=== PATIENT | male | born 1960 | race Hispanic/Latino ===

== ENCOUNTER 2021-09-15 11:51 | Emergency (ER) | payer OTHER, SELFPAY ==
[~2021-09-15] VITALS: Ht 170.2 cm; Wt 78.0 kg
[~2021-09-15 11:51] MED LIST: ACET1TAB12 PO; ATOR40TA69 PO; CIPR-278 PO; INSLAN SQ; LISI10TA24 PO; METF-526 PO; SITA25TA5 PO; SULF1TAB42 PO
[2021-09-15 11:52] VITALS: BP 178/85
[2021-09-15] MEDS ORDERED: LIDOCAINE HCL-MPF 1% 2ML VIAL ONE (13:21)
[2021-09-15] MEDS ORDERED: MUPIROCIN OINTMENT 22 GM TUBE TP SCH (13:30)
[2021-09-15] MEDS ORDERED: OXYCODONE/ACETAMIN 5/325MG TAB PO SCH (13:30)
[2021-09-15] MEDS ORDERED: CEFTRIAXONE 1G VIAL IM SCH (13:30)
[2021-09-15] MEDS ORDERED: IBUP-2070 PO (15:14)
[2021-09-15] MEDS ORDERED: CLIN-26 PO (15:14)
== END 2021-09-15 15:26 | disposition home or self-care (01) ==
LOC: EDH 11:51
DX: S90.811A Abrasion, right foot, initial encounter (principal); L03.115 Cellulitis of right lower limb; E11.9 Type 2 diabetes mellitus without complications; E78.00 Pure hypercholesterolemia, unspecified; I10 Essential (primary) hypertension; Z79.4 Long term (current) use of insulin; Z79.899 Other long term (current) drug therapy; W20.8XXA Other cause of strike by thrown, projected or falling object, initial encounter; Y93.89 Activity, other specified; Y92.89 Other specified places as the place of occurrence of the external cause; Y99.8 Other external cause status
CPT/HCPCS: 73630; 82948; 96372; 99283; J0696; J3490

== ENCOUNTER 2021-09-17 12:08 | Inpatient (IN) | payer OTHER ==
[~2021-09-17] VITALS: Ht 170.2 cm; Wt 81.5 kg
[~2021-09-17 12:08] MED LIST changes: +CLIN-26 PO; +IBUP-2070 PO
[2021-09-17] MEDS ORDERED: 0.9% NACL 250ML IV SCH (12:30)
[2021-09-17] MEDS ORDERED: HYDROCODONE/ACETAMINOPHEN 10/325 MG TAB PO ONE (12:30)
[2021-09-17] MEDS ORDERED: VANCOMYCIN 1G VIAL IVPB SCH (12:30)
[2021-09-17] MEDS ORDERED: ONDANSETRON 4MG INJ IVP ONE (12:30)
[2021-09-17] MEDS ORDERED: TETANUS/DIPHTHERIA TOXOID [ADULT] 0.5 ML VIAL IM ONE (12:30)
[2021-09-17 12:46] LABS: APPEARANCE,URINE Clear (CLEAR); BILIRUBIN,URINE Negative (NEGATIVE); COLOR,URINE Yellow (YELLOW); GLUCOSE, URINE (UA) >=1000 mg/dL (NEGATIVE); KETONES,URINE Trace mg/dL (NEGATIVE); LEUKOCYTE ESTERASE ,URINE Negative (NEGATIVE); NITRATE,URINE Negative (NEGATIVE); OCCULT BLOOD,URINE Negative (NEGATIVE); PH,URINE 5.5 (5.0-8.0); PROTEIN,URINE 300 mg/dL (NEGATIVE)
[2021-09-17 12:50] LABS: BACTERIA,URINE Rare /HPF (None Seen); RBC,URINE 0-1 /HPF (0-1); SQUAMOUS EPITHELIAL CELL,UR Rare /HPF (0-2); WBC,URINE 0-1 /HPF (0-1)
[2021-09-17] MEDS: INSULIN HUMULIN R 100 UNIT/ML 3ML SQ SCH ×2 (12:50→17:00)
[2021-09-17 12:55] LABS: EOSINOPHILS % (AUTO) 1.3 % (0.0-8.0); HEMATOCRIT 42.3 % (42-54); LYMPHOCYTES % (AUTO) 22.7 % (21.0-51.0); MEAN CORPUSCULAR HEMOGLOBIN 30.2 pg (27.0-33.0); MEAN CORPUSCULAR HGB CONC 33.3 g/dL (32.0-36.0); MEAN CORPUSCULAR VOLUME 90.6 fL (79-99); MONOCYTES % (AUTO) 5.5 % (3.0-13.0); NEUTROPHILS % (AUTO) 69.2 % (40.0-77.0); PLATELET COUNT (AUTO) 229 K/uL (130-400); RED BLOOD CELL COUNT(AUTO) 4.67 MIL/uL (4.50-6.20); RED CELL DISTRIBUTION WIDTH 12.6 % (11.0-15.5); WHITE BLOOD COUNT (AUTO) 13.6 K/uL (4.8-10.8)
[2021-09-17] MEDS ORDERED: 0.9%NACL 1000ML 1,000 ML IV SCH ×2 (13:00)
[2021-09-17] MEDS ORDERED: VANCOMYCIN 1G/250ML KIT 250 ML IV SCH (13:00)
[2021-09-17 13:06] LABS: CREATININE 0.7 mg/dL (0.5-1.5); POTASSIUM 3.6 mmol/L (3.5-5.1)
[2021-09-17] MEDS ORDERED: 0.9%NACL 50ML 50 ML IV ONE (13:09)
[2021-09-17 13:10] LABS: ALBUMIN 3.4 g/dL (3.5-5.0); BILIRUBIN,TOTAL 0.3 mg/dL (0.2-1.0); CRP QUANTITATIVE 67.1 mg/L (0.00-9.0); TOTAL PROTEIN, SERUM 7.6 g/dL (6.0-8.3)
[2021-09-17] MEDS: ZOSYN 3.375GM +NS 50ML IV SCH ×2 (13:23→20:41)
[2021-09-17] MEDS ORDERED: ACETAMINOPHEN 325 MG TAB PO PRN ×2 (15:00)
[2021-09-17] MEDS ORDERED: ONDANSETRON 4MG INJ IV PRN (15:00)
[2021-09-17 16:12] LABS: HEMOGLOBIN A1C 8.3 % (4.0-6.0)
[2021-09-17] MEDS: 0.9%NACL 1000ML 1,000 ML IV SCH (16:35)
[2021-09-17] MEDS: FAMOTIDINE 20MG VIAL IV SCH (20:42)
[2021-09-17] MEDS: VANCOMYCIN 1G/250ML KIT 250 ML IV SCH (20:43)
[2021-09-17] MEDS ORDERED: INSULIN GLARGINE 100 UNITS/ML 10 ML VIAL SQ SCH (21:00)
[2021-09-17 22:15] VITALS: BP 138/69
[2021-09-17 22:40] LABS: AMPHET/METH SCREEN,URINE NEGATIVE (NEGATIVE); BARBITURATE SCREEN, URINE NEGATIVE (NEGATIVE); BENZODIAZEPINES SCREEN,URINE NEGATIVE (NEGATIVE); CANNABINOID SCREEN,URINE NEGATIVE (NEGATIVE); COCAINE SCREEN,URINE NEGATIVE (NEGATIVE); OPIATE SCREEN,URINE NEGATIVE (NEGATIVE); PHENCYCLIDINE SCREEN,URINE NEGATIVE (NEGATIVE)
[2021-09-17] MEDS ORDERED: LISI30TA4 PO (23:22)
[2021-09-17] MEDS ORDERED: DAPA10TA PO (23:22)
[2021-09-17] MEDS ORDERED: AEC81 PO (23:22)
[2021-09-17] MEDS ORDERED: CLIN-116 PO (23:22)
[2021-09-17] MEDS ORDERED: METF-910 PO (23:22)
[2021-09-17] MEDS ORDERED: ROSU40TA21 PO (23:22)
[2021-09-17] MEDS ORDERED: INSU100I24 SQ (23:27)
[2021-09-17] MEDS ORDERED: LIRA0.6P SQ (23:27)
[2021-09-17] MEDS ORDERED: MORPHINE 2 MG SYG ONE (23:49)
[2021-09-18] MEDS ORDERED: MORPHINE 2 MG SYG IVP ONE
[2021-09-18 03:36] VITALS: BP 155/70
[2021-09-18 03:56] LABS: HEMATOCRIT 37.8 % (42-54); MEAN CORPUSCULAR HGB CONC 33.1 g/dL (32.0-36.0); MEAN CORPUSCULAR VOLUME 90.6 fL (79-99); RED BLOOD CELL COUNT(AUTO) 4.17 MIL/uL (4.50-6.20); RED CELL DISTRIBUTION WIDTH 12.7 % (11.0-15.5)
[2021-09-18 04:08] LABS: CREATININE 0.9 mg/dL (0.5-1.5); POTASSIUM 3.5 mmol/L (3.5-5.1)
[2021-09-18] MEDS: ZOSYN 3.375GM +NS 50ML IV SCH ×3 (04:18→20:09)
[2021-09-18] MEDS: 0.9%NACL 1000ML 1,000 ML IV SCH ×2 (04:42→18:22)
[2021-09-18 08:00] VITALS: BP 151/65
[2021-09-18] MEDS: INSULIN HUMULIN R 100 UNIT/ML 3ML SQ SCH ×4 (08:23→17:00)
[2021-09-18] MEDS: FAMOTIDINE 20MG VIAL IV SCH ×2 (08:27→20:09)
[2021-09-18] MEDS: VANCOMYCIN 1G/250ML KIT 250 ML IV SCH ×2 (08:28→20:10)
[2021-09-18] MEDS: ENOXAPARIN SODIUM 40 MG/0.4 ML SYRINGE SQ SCH (08:29)
[2021-09-18] MEDS ORDERED: PNEUMOCOCCAL VACCINE POLYVALENT 0.5 ML/VIAL [PPV] SQ ONE (09:00)
[2021-09-18] MEDS ORDERED: ASPIRIN 81 MG EC TAB PO SCH (09:00)
[2021-09-18] MEDS ORDERED: IOHEXOL 350 MG/ML 100ML INFUS..BTL IV ONE (11:32)
[2021-09-18] MEDS ORDERED: IOHEXOL-350 50ML VIAL IV ONE (11:32)
[2021-09-18 11:57] VITALS: BP 144/73
[2021-09-18] MEDS: ASPIRIN 81 MG EC TAB PO SCH (12:19)
[2021-09-18] MEDS: LISINOPRIL 20 MG TABLET PO SCH ×2 (12:19→20:09)
[2021-09-18 16:00] VITALS: BP 146/61
[2021-09-18] MEDS: TRAMADOL HCL 50 MG TABLET PO PRN (18:23)
[2021-09-18] MEDS ORDERED: DEXTROSE 50%-WATER 50 ML DISP.SYRIN IV PRN (19:00)
[2021-09-18] MEDS ORDERED: GLUCAGON 1MG KIT 1 MG ML IM PRN (19:00)
[2021-09-18 19:29] VITALS: BP 174/79
[2021-09-18] MEDS ORDERED: 0.9% NACL 250ML 250 ML ONE (19:51)
[2021-09-18] MEDS: ATORVASTATIN 40 MG TABLET PO SCH (20:10)
[2021-09-18] MEDS ORDERED: PNEUMOCOCCAL VACCINE POLYVALENT 0.5 ML/VIAL [PPV] ONE (20:15)
[2021-09-18] MEDS ORDERED: COMPOUND IV REFRIGERATED 1 EACH IVSOLN MISC PRN (20:30)
[2021-09-18] MEDS: VANCOMYCIN 1G 1.25 GM in 0.9% NACL 250ML 250 ML IV SCH (20:30)
[2021-09-18 23:25] VITALS: BP 166/68
[2021-09-19 03:47] VITALS: BP 163/77
[2021-09-19 03:49] LABS: HEMATOCRIT 38.1 % (42-54); MEAN CORPUSCULAR HEMOGLOBIN 29.7 pg (27.0-33.0); MEAN CORPUSCULAR HGB CONC 32.3 g/dL (32.0-36.0); RED BLOOD CELL COUNT(AUTO) 4.14 MIL/uL (4.50-6.20); WHITE BLOOD COUNT (AUTO) 11.2 K/uL (4.8-10.8)
[2021-09-19 04:08] LABS: CREATININE 0.9 mg/dL (0.5-1.5); POTASSIUM 3.2 mmol/L (3.5-5.1)
[2021-09-19] MEDS: ZOSYN 3.375GM +NS 50ML IV SCH (04:26)
[2021-09-19] MEDS ORDERED: KCL 20 MEQ ERTAB PO ONE (06:00)
[2021-09-19] MEDS: 0.9%NACL 1000ML 1,000 ML IV SCH ×2 (07:00→19:57)
[2021-09-19] MEDS: INSULIN HUMULIN R 100 UNIT/ML 3ML SQ SCH ×4 (07:17→20:26)
[2021-09-19] MEDS ORDERED: KCL 20 MEQ ERTAB PO SCH (08:00)
[2021-09-19] MEDS: ENOXAPARIN SODIUM 40 MG/0.4 ML SYRINGE SQ SCH (08:28)
[2021-09-19] MEDS: LISINOPRIL 20 MG TABLET PO SCH ×2 (08:29→20:21)
[2021-09-19] MEDS: ASPIRIN 81 MG EC TAB PO SCH (08:29)
[2021-09-19] MEDS: VANCOMYCIN 1G 1.25 GM in 0.9% NACL 250ML 250 ML IV SCH ×2 (08:30→20:20)
[2021-09-19] MEDS: FAMOTIDINE 20MG VIAL IV SCH ×2 (08:31→20:20)
[2021-09-19] MEDS: TRAMADOL HCL 50 MG TABLET PO PRN ×2 (08:33→20:29)
[2021-09-19 08:34] VITALS: BP 151/69
[2021-09-19 12:08] VITALS: BP 136/60
[2021-09-19] MEDS: AMLODIPINE 5 MG TAB PO SCH (12:57)
[2021-09-19] MEDS: CEFEPIME HCL 2 GM VIAL IVP SCH ×2 (12:57→23:00)
[2021-09-19 17:09] VITALS: BP 170/81
[2021-09-19] MEDS: HYDRALAZINE 20MG/ML VIAL IV PRN (18:18)
[2021-09-19] MEDS: ATORVASTATIN 40 MG TABLET PO SCH (20:21)
[2021-09-19 20:28] VITALS: BP 175/82
[2021-09-19 21:39] VITALS: BP 159/77
[2021-09-20] VITALS (16 sets, daily range): BP systolic 115–168; BP diastolic 58–77
[2021-09-20] MEDS ORDERED: KCL 20 MEQ ERTAB PO ONE (00:30)
[2021-09-20] MEDS: HYDRALAZINE 20MG/ML VIAL IV PRN ×2 (00:45→22:21)
[2021-09-20 04:01] LABS: MEAN CORPUSCULAR HGB CONC 34.4 g/dL (32.0-36.0); MEAN CORPUSCULAR VOLUME 87.2 fL (79-99); RED BLOOD CELL COUNT(AUTO) 4.47 MIL/uL (4.50-6.20); RED CELL DISTRIBUTION WIDTH 12.1 % (11.0-15.5); WHITE BLOOD COUNT (AUTO) 10.5 K/uL (4.8-10.8)
[2021-09-20 04:12] LABS: INR 0.98 (0.85-1.15); PROTHROMBIN TIME 10.7 SEC (9.6-11.6)
[2021-09-20 04:15] LABS: ALBUMIN 2.9 g/dL (3.5-5.0); BILIRUBIN,TOTAL 0.3 mg/dL (0.2-1.0); CREATININE 0.6 mg/dL (0.5-1.5); POTASSIUM 3.5 mmol/L (3.5-5.1); TOTAL PROTEIN, SERUM 7.1 g/dL (6.0-8.3)
[2021-09-20] MEDS: 0.9%NACL 1000ML 1,000 ML IV SCH ×3 (05:43→22:21)
[2021-09-20] MEDS: INSULIN HUMULIN R 100 UNIT/ML 3ML SQ SCH ×4 (05:51→20:34)
[2021-09-20] MEDS ORDERED: HEPARIN 10,000 UNIT/10ML (1,000 UNIT/ML) VIAL ONE (07:20)
[2021-09-20] MEDS ORDERED: NITROGLYCERIN 2 MG VIAL IV ONE (07:21)
[2021-09-20] MEDS ORDERED: IODIXANOL 320 MG/ML 100 ML VIAL ONE (07:21)
[2021-09-20] MEDS ORDERED: LIDOCAINE HCL 400MG/20ML VIAL ONE (07:21)
[2021-09-20] MEDS ORDERED: MIDAZOLAM HCL 1 MG/ML 2ML VIAL ONE (07:21)
[2021-09-20] MEDS ORDERED: FENTANYL CITRATE PF 50 MCG/1 ML 2ML VIAL ONE (07:21)
[2021-09-20 07:49] LABS: INR 1.01 (0.85-1.15)
[2021-09-20 07:50] LABS: PARTIAL THROMBOPLASTIN TIME 30.2 SEC (26.3-35.5)
[2021-09-20] MEDS ORDERED: 0.9%NACL 1000ML 1,000 ML IV SCH (09:00)
[2021-09-20] MEDS: LISINOPRIL 20 MG TABLET PO SCH ×2 (11:08→20:24)
[2021-09-20] MEDS: FAMOTIDINE 20MG VIAL IV SCH ×2 (11:09→20:23)
[2021-09-20] MEDS: ENOXAPARIN SODIUM 40 MG/0.4 ML SYRINGE SQ SCH (11:09)
[2021-09-20] MEDS: AMLODIPINE 5 MG TAB PO SCH (11:09)
[2021-09-20] MEDS: ASPIRIN 81 MG EC TAB PO SCH (11:09)
[2021-09-20] MEDS: VANCOMYCIN 1G 1.25 GM in 0.9% NACL 250ML 250 ML IV SCH ×2 (11:14→20:25)
[2021-09-20] MEDS: CEFEPIME HCL 2 GM VIAL IVP SCH ×2 (11:14→22:45)
[2021-09-20] MEDS: BUPROPION HCL 150 MG TABLET.SA PO SCH (20:23)
[2021-09-20] MEDS: ATORVASTATIN 40 MG TABLET PO SCH (20:24)
[2021-09-20] MEDS: TRAMADOL HCL 50 MG TABLET PO PRN (20:24)
[2021-09-21] VITALS (20 sets, daily range): BP systolic 104–177; BP diastolic 45–77
[2021-09-21 05:05] LABS: HEMATOCRIT 44.7 % (42-54); MEAN CORPUSCULAR HEMOGLOBIN 29.4 pg (27.0-33.0); MEAN CORPUSCULAR HGB CONC 32.2 g/dL (32.0-36.0); MEAN CORPUSCULAR VOLUME 91.4 fL (79-99); RED BLOOD CELL COUNT(AUTO) 4.89 MIL/uL (4.50-6.20); RED CELL DISTRIBUTION WIDTH 12.4 % (11.0-15.5); WHITE BLOOD COUNT (AUTO) 12.4 K/uL (4.8-10.8)
[2021-09-21 05:07] LABS: PROTHROMBIN TIME 10.9 SEC (9.6-11.6)
[2021-09-21 05:08] LABS: PARTIAL THROMBOPLASTIN TIME 32.5 SEC (26.3-35.5)
[2021-09-21 05:16] LABS: CREATININE 0.8 mg/dL (0.5-1.5); POTASSIUM 3.6 mmol/L (3.5-5.1)
[2021-09-21] MEDS: INSULIN HUMULIN R 100 UNIT/ML 3ML SQ SCH ×4 (06:06→20:51)
[2021-09-21] MEDS: ENOXAPARIN SODIUM 40 MG/0.4 ML SYRINGE SQ SCH ×2 (09:00→09:47)
[2021-09-21] MEDS: BUPROPION HCL 150 MG TABLET.SA PO SCH ×3 (09:00→20:49)
[2021-09-21] MEDS: ASPIRIN 81 MG EC TAB PO SCH ×2 (09:00→09:47)
[2021-09-21] MEDS: AMLODIPINE 5 MG TAB PO SCH ×2 (09:00→09:47)
[2021-09-21] MEDS: LISINOPRIL 20 MG TABLET PO SCH ×3 (09:00→20:49)
[2021-09-21] MEDS: CEFEPIME HCL 2 GM VIAL IVP SCH (09:46)
[2021-09-21] MEDS: FAMOTIDINE 20MG VIAL IV SCH ×2 (09:47→20:48)
[2021-09-21] MEDS: NICOTINE 21 MG/ 24 HR PATCH TD SCH (09:48)
[2021-09-21] MEDS: VANCOMYCIN 1G 1.25 GM in 0.9% NACL 250ML 250 ML IV SCH ×2 (09:50→20:49)
[2021-09-21] MEDS: 0.9%NACL 1000ML 1,000 ML IV SCH ×2 (12:20→18:21)
[2021-09-21] MEDS ORDERED: CEFAZOLIN SODIUM 1 GM VIAL IVP PRN ×2 (13:00→15:30)
[2021-09-21] MEDS ORDERED: CEFAZOLIN SODIUM 1 GM VIAL ONE ×3 (15:13→17:52)
[2021-09-21] MEDS ORDERED: PROPOFOL 10 MG/ML 20ML VIAL IV ONE (15:27)
[2021-09-21] MEDS ORDERED: LIDOCAINE PF 100MG/5ML (2%) SYRINGE 5ML ONE ×3 (15:27→15:43)
[2021-09-21] MEDS ORDERED: ROCURONIUM 10MG/1ML SYR 10 MG/ML ML ONE (15:34)
[2021-09-21] MEDS ORDERED: FENTANYL CITRATE PF 50 MCG/1 ML 2ML VIAL ONE ×2 (16:41→17:53)
[2021-09-21] MEDS ORDERED: HEPARIN 10,000 UNIT/10ML (1,000 UNIT/ML) VIAL ONE (16:57)
[2021-09-21] MEDS ORDERED: PHENYLEPHRINE HCL 10 MG/ML 1ML VIAL IV ONE (17:16)
[2021-09-21] MEDS ORDERED: PROTAMINE SULFATE 10 MG/ML 5 ML VIAL ONE (17:49)
[2021-09-21] MEDS ORDERED: NEOSTIGMINE 5MG/5ML SYR IV ONE (18:04)
[2021-09-21] MEDS ORDERED: ONDANSETRON 4MG INJ ONE (18:04)
[2021-09-21] MEDS ORDERED: GLYCOPYRROLATE 1 MG/5 ML SYRINGE ONE (18:04)
[2021-09-21] MEDS ORDERED: ACETAMINOPHEN 325 MG TAB PO PRN (18:30)
[2021-09-21] MEDS ORDERED: TRAMADOL HCL 50 MG TABLET PO PRN (18:30)
[2021-09-21] MEDS ORDERED: MEPERIDINE-PF 25 MG/ML SYG ONE (19:00)
[2021-09-21] MEDS: ATORVASTATIN 40 MG TABLET PO SCH (20:49)
[2021-09-21] MEDS: TRAMADOL HCL 50 MG TABLET PO PRN (20:50)
[2021-09-22] VITALS (21 sets, daily range): BP systolic 121–169; BP diastolic 46–73
[2021-09-22] MEDS: CEFAZOLIN SODIUM 1 GM VIAL IVP SCH ×3 (01:37→18:17)
[2021-09-22] MEDS: TRAMADOL HCL 50 MG TABLET PO PRN ×3 (02:32→19:47)
[2021-09-22] MEDS: INSULIN HUMULIN R 100 UNIT/ML 3ML SQ SCH ×4 (06:36→20:05)
[2021-09-22 07:17] LABS: HEMATOCRIT 38.8 % (42-54); MEAN CORPUSCULAR HEMOGLOBIN 29.6 pg (27.0-33.0); MEAN CORPUSCULAR HGB CONC 32.2 g/dL (32.0-36.0); MEAN CORPUSCULAR VOLUME 91.7 fL (79-99); PLATELET COUNT (AUTO) 249 K/uL (130-400); RED BLOOD CELL COUNT(AUTO) 4.23 MIL/uL (4.50-6.20); RED CELL DISTRIBUTION WIDTH 12.5 % (11.0-15.5); WHITE BLOOD COUNT (AUTO) 17.6 K/uL (4.8-10.8)
[2021-09-22 07:29] LABS: ALBUMIN 2.7 g/dL (3.5-5.0); BILIRUBIN,TOTAL 0.4 mg/dL (0.2-1.0); CREATININE 0.8 mg/dL (0.5-1.5); POTASSIUM 4.2 mmol/L (3.5-5.1); TOTAL PROTEIN, SERUM 6.8 g/dL (6.0-8.3)
[2021-09-22 08:46] LABS: BAND NEUTROPHILS % (MANUAL) 1 % (0-2); LYMPHOCYTES % (MANUAL) 6 % (22-44); MAN.DIFF COMMENT-IMPRESSION MANUAL DIFFERENTIAL; MONOCYTES % (MANUAL) 2 % (2-9); PLATELET MORPHOLOGY COMMENT ADEQUATE; SEGMENTED NEUTROPHILS % 91 % (40-70)
[2021-09-22] MEDS: LISINOPRIL 20 MG TABLET PO SCH (08:53)
[2021-09-22] MEDS: BUPROPION HCL 150 MG TABLET.SA PO SCH ×2 (08:53→19:58)
[2021-09-22] MEDS: AMLODIPINE 5 MG TAB PO SCH (08:53)
[2021-09-22] MEDS: ASPIRIN 81 MG EC TAB PO SCH (08:53)
[2021-09-22] MEDS: FAMOTIDINE 20MG VIAL IV SCH ×2 (08:53→19:46)
[2021-09-22] MEDS: NICOTINE 21 MG/ 24 HR PATCH TD SCH (08:54)
[2021-09-22] MEDS: RIVAROXABAN 2.5 MG TABLET PO SCH ×2 (09:00→19:47)
[2021-09-22] MEDS ORDERED: INSULIN GLARGINE 100 UNITS/ML 10 ML VIAL SQ SCH (09:00)
[2021-09-22] MEDS ORDERED: PHARMACY COMMUNICATION MISC SCH (09:30)
[2021-09-22] MEDS: VANCOMYCIN 1G 1.25 GM in 0.9% NACL 250ML 250 ML IV SCH ×2 (10:12→19:58)
[2021-09-22] MEDS ORDERED: INSULIN HUMULIN R 100 UNIT/ML 3ML SQ SCH ×2 (11:30→17:00)
[2021-09-22] MEDS: HYDROCHLOROTHIAZIDE 25 MG TABLET PO SCH (19:46)
[2021-09-22] MEDS: ATORVASTATIN 40 MG TABLET PO SCH (19:47)
[2021-09-22] MEDS ORDERED: LOSARTAN 50 MG TABLET PO SCH (20:00)
[2021-09-23] VITALS (9 sets, daily range): BP systolic 144–183; BP diastolic 64–92
[2021-09-23] MEDS: TRAMADOL HCL 50 MG TABLET PO PRN ×2 (02:01→23:51)
[2021-09-23] MEDS: INSULIN HUMULIN R 100 UNIT/ML 3ML SQ SCH ×7 (05:24→20:14)
[2021-09-23 06:54] LABS: ALBUMIN 2.8 g/dL (3.5-5.0); BILIRUBIN,TOTAL 0.4 mg/dL (0.2-1.0); CREATININE 0.7 mg/dL (0.5-1.5); POTASSIUM 3.4 mmol/L (3.5-5.1)
[2021-09-23] MEDS: PANTOPRAZOLE 40 MG TAB DR PO SCH (08:37)
[2021-09-23] MEDS: BUPROPION HCL 150 MG TABLET.SA PO SCH ×2 (08:37→20:01)
[2021-09-23] MEDS: RIVAROXABAN 2.5 MG TABLET PO SCH ×2 (08:37→20:01)
[2021-09-23] MEDS: HYDROCHLOROTHIAZIDE 25 MG TABLET PO SCH (08:38)
[2021-09-23] MEDS: ASPIRIN 81 MG EC TAB PO SCH (08:38)
[2021-09-23] MEDS: LOSARTAN 50 MG TABLET PO SCH (08:39)
[2021-09-23] MEDS: NICOTINE 21 MG/ 24 HR PATCH TD SCH (08:43)
[2021-09-23] MEDS: VANCOMYCIN 1G 1.25 GM in 0.9% NACL 250ML 250 ML IV SCH ×2 (08:45→20:15)
[2021-09-23] MEDS: AMLODIPINE 5 MG TAB PO SCH (08:46)
[2021-09-23] MEDS ORDERED: INSULIN GLARGINE 100 UNITS/ML 10 ML VIAL SQ SCH (09:00)
[2021-09-23 12:03] LABS: HEMATOCRIT 40.7 % (42-54); MEAN CORPUSCULAR HEMOGLOBIN 29.9 pg (27.0-33.0); MEAN CORPUSCULAR HGB CONC 32.4 g/dL (32.0-36.0); MEAN CORPUSCULAR VOLUME 92.1 fL (79-99); RED BLOOD CELL COUNT(AUTO) 4.42 MIL/uL (4.50-6.20); RED CELL DISTRIBUTION WIDTH 12.6 % (11.0-15.5); WHITE BLOOD COUNT (AUTO) 15.6 K/uL (4.8-10.8)
[2021-09-23] MEDS ORDERED: POTASSIUM CHLORIDE 20MEQ/100ML 100 ML IV PRN (16:00)
[2021-09-23] MEDS: KCL 20 MEQ ERTAB PO PRN ×2 (16:38→18:36)
[2021-09-23] MEDS: ATORVASTATIN 40 MG TABLET PO SCH (20:06)
[2021-09-24] VITALS (10 sets, daily range): BP systolic 136–177; BP diastolic 63–82
[2021-09-24 04:18] LABS: BASOPHILS % (AUTO) 0.8 % (0.0-5.0); EOSINOPHILS % (AUTO) 1.8 % (0.0-8.0); HEMATOCRIT 37.6 % (42-54); LYMPHOCYTES % (AUTO) 15.5 % (21.0-51.0); MEAN CORPUSCULAR HEMOGLOBIN 29.2 pg (27.0-33.0); MEAN CORPUSCULAR VOLUME 88.5 fL (79-99); MONOCYTES % (AUTO) 10.2 % (3.0-13.0); PLATELET COUNT (AUTO) 249 K/uL (130-400); RED BLOOD CELL COUNT(AUTO) 4.25 MIL/uL (4.50-6.20); RED CELL DISTRIBUTION WIDTH 12.4 % (11.0-15.5); WHITE BLOOD COUNT (AUTO) 13.7 K/uL (4.8-10.8)
[2021-09-24 04:52] LABS: ALBUMIN 2.6 g/dL (3.5-5.0); BILIRUBIN,TOTAL 0.3 mg/dL (0.2-1.0); CREATININE 0.8 mg/dL (0.5-1.5); POTASSIUM 3.1 mmol/L (3.5-5.1)
[2021-09-24] MEDS: INSULIN HUMULIN R 100 UNIT/ML 3ML SQ SCH ×6 (06:39→16:23)
[2021-09-24] MEDS: KCL 20 MEQ ERTAB PO PRN (07:03)
[2021-09-24] MEDS ORDERED: INSULIN GLARGINE 100 UNITS/ML 10 ML VIAL SQ SCH (08:00)
[2021-09-24] MEDS: RIVAROXABAN 2.5 MG TABLET PO SCH (08:23)
[2021-09-24] MEDS: LOSARTAN 50 MG TABLET PO SCH (08:23)
[2021-09-24] MEDS: AMLODIPINE 5 MG TAB PO SCH (08:23)
[2021-09-24] MEDS: BUPROPION HCL 150 MG TABLET.SA PO SCH (08:24)
[2021-09-24] MEDS: PANTOPRAZOLE 40 MG TAB DR PO SCH (08:24)
[2021-09-24] MEDS: ASPIRIN 81 MG EC TAB PO SCH (08:24)
[2021-09-24] MEDS: HYDROCHLOROTHIAZIDE 25 MG TABLET PO SCH (08:24)
[2021-09-24] MEDS: NICOTINE 21 MG/ 24 HR PATCH TD SCH (08:25)
[2021-09-24] MEDS: VANCOMYCIN 1G 1.25 GM in 0.9% NACL 250ML 250 ML IV SCH (08:35)
[2021-09-24] MEDS ORDERED: NICOTINE 21 MG/ 24 HR PATCH TD SCH (09:00)
[2021-09-24] MEDS ORDERED: PANT40TA PO (12:51)
[2021-09-24] MEDS ORDERED: LOSA50TA2 PO (12:51)
[2021-09-24] MEDS ORDERED: BUPR150T3 PO (12:51)
[2021-09-24] MEDS ORDERED: HYDR25TA PO (12:51)
[2021-09-24] MEDS ORDERED: AMLO5TAB4 PO (12:51)
[2021-09-24] MEDS ORDERED: ATOR40TA69 PO (12:51)
== END 2021-09-24 19:53 | disposition home or self-care (01) | DRG 253 ==
LOC: EDH 12:08 → EDHIP 12:09 → 4BH 20:46 → 2BH 09-21 19:41 → 4CH 09-24 14:25
PROVIDERS: ADMIT Internal Medicine; ATTEND Internal Medicine
PROC: 3E0234Z Introduction of Serum, Toxoid and Vaccine into Muscle, Percutaneous Approach (ICD-10-PCS; 2021-09-17)
PROC: 3E0134Z Introduction of Serum, Toxoid and Vaccine into Subcutaneous Tissue, Percutaneous Approach (ICD-10-PCS; 2021-09-18)
PROC: B41G1ZZ Fluoroscopy of Left Lower Extremity Arteries using Low Osmolar Contrast (ICD-10-PCS; 2021-09-20)
PROC: 04CK0ZZ Extirpation of Matter from Right Femoral Artery, Open Approach (ICD-10-PCS; principal; 2021-09-21 15:25)
PROC: 041 Lower Arteries, Bypass (ICD-10-PCS; 2021-09-21 15:25)
DX: I77.1 Stricture of artery (principal); L03.115 Cellulitis of right lower limb; E11.51 Type 2 diabetes mellitus with diabetic peripheral angiopathy without gangrene; I10 Essential (primary) hypertension; E11.65 Type 2 diabetes mellitus with hyperglycemia; B35.1 Tinea unguium; E11.621 Type 2 diabetes mellitus with foot ulcer; E78.00 Pure hypercholesterolemia, unspecified; Z20.822 Contact with and (suspected) exposure to COVID-19; E78.5 Hyperlipidemia, unspecified; F17.210 Nicotine dependence, cigarettes, uncomplicated; I25.10 Atherosclerotic heart disease of native coronary artery without angina pectoris; F32.A Depression, unspecified; L97.509 Non-pressure chronic ulcer of other part of unspecified foot with unspecified severity; E66.9 Obesity, unspecified; Z68.28 Body mass index [BMI] 28.0-28.9, adult; Z79.01 Long term (current) use of anticoagulants; Z79.4 Long term (current) use of insulin; Z79.84 Long term (current) use of oral hypoglycemic drugs; Z79.899 Other long term (current) drug therapy; Z83.3 Family history of diabetes mellitus; Z82.5 Family history of asthma and other chronic lower respiratory diseases; Z82.3 Family history of stroke; Z82.0 Family history of epilepsy and other diseases of the nervous system; Z82.49 Family history of ischemic heart disease and other diseases of the circulatory system
CPT/HCPCS: 36246; 36415; 71045; 73630; 73700; 75635; 75716; 80048; 80053; 80202; 80305; 81001; 82948; 83036; 83605; 83735; 84132; 84484; 85025; 85027; 85610; 85730; 86140; 86850; 86900; 86901; 86923; 87040; 87635; 90714; 90732; 93005; 93306; 93356; 93926; 96372; 97039; 99156; 99157; A4344; C1894; G0378; J0360; J0690; J0692; J0696; J1644; J1650; J1815; J2001; J2175; J2250; J2370; J2405; J2543; J2704; J2710; J2720; J3010; J3370; J3490; J7030; J7040; J7050; Q9967

== ENCOUNTER 2021-10-16 08:56 | Emergency (ER) | payer OTHER ==
[~2021-10-16] VITALS: Ht 170.2 cm; Wt 81.6 kg
[~2021-10-16 08:56] MED LIST changes: -ACET1TAB12 PO; +AEC81 PO; +AMLO5TAB4 PO; +BUPR150T3 PO; -CIPR-278 PO; -CLIN-26 PO; +DAPA10TA PO; +HYDR25TA PO; -IBUP-2070 PO; -INSLAN SQ; +INSU100I24 SQ; +LIRA0.6P SQ; -LISI10TA24 PO; +LISI30TA4 PO; +LOSA50TA2 PO; -METF-526 PO; +METF-910 PO; +PANT40TA PO; -SULF1TAB42 PO
[2021-10-16 09:04] VITALS: BP 201/87
[2021-10-16] MEDS ORDERED: LIDOCAINE HCL-MPF 1% 2ML VIAL ONE (09:29)
[2021-10-16] MEDS ORDERED: CEFTRIAXONE 1G VIAL IM ONE (09:30)
[2021-10-16] MEDS ORDERED: BACITRACIN 28.4 GM OINT TP SCH (09:30)
[2021-10-16] MEDS ORDERED: CEPH500B PO (09:39)
[2021-10-16] MEDS ORDERED: BACI1POW3 MC (09:39)
== END 2021-10-16 10:21 | disposition home or self-care (01) ==
LOC: EDH 08:56
DX: T81.49XA Infection following a procedure, other surgical site, initial encounter (principal); L03.115 Cellulitis of right lower limb; I10 Essential (primary) hypertension; E11.9 Type 2 diabetes mellitus without complications; E78.00 Pure hypercholesterolemia, unspecified; Z98.890 Other specified postprocedural states; Z79.82 Long term (current) use of aspirin; Z79.899 Other long term (current) drug therapy; Z79.4 Long term (current) use of insulin; Y92.89 Other specified places as the place of occurrence of the external cause
CPT/HCPCS: 96372; 99283; J0696; J3490

== ENCOUNTER 2021-11-29 09:14 | Inpatient (IN) | payer OTHER ==
[~2021-11-29] VITALS: Ht 167.6 cm; Wt 84.5 kg
[~2021-11-29 09:14] MED LIST changes: +BACI1POW3 MC; +CEPH500B PO
[2021-11-29 10:03] LABS: BASOPHILS % (AUTO) 1.2 % (0.0-5.0); EOSINOPHILS % (AUTO) 4.2 % (0.0-8.0); HEMATOCRIT 45.3 % (42-54); LYMPHOCYTES % (AUTO) 25.6 % (21.0-51.0); MEAN CORPUSCULAR HGB CONC 33.1 g/dL (32.0-36.0); MEAN CORPUSCULAR VOLUME 87.5 fL (79-99); MONOCYTES % (AUTO) 5.8 % (3.0-13.0); NEUTROPHILS % (AUTO) 62.9 % (40.0-77.0); PLATELET COUNT (AUTO) 268 K/uL (130-400); RED BLOOD CELL COUNT(AUTO) 5.18 MIL/uL (4.50-6.20); RED CELL DISTRIBUTION WIDTH 13.4 % (11.0-15.5); WHITE BLOOD COUNT (AUTO) 10.7 K/uL (4.8-10.8)
[2021-11-29 10:19] LABS: ALBUMIN 3.5 g/dL (3.5-5.0); BILIRUBIN,TOTAL 0.2 mg/dL (0.2-1.0); CREATININE 0.9 mg/dL (0.5-1.5); POTASSIUM 4.1 mmol/L (3.5-5.1)
[2021-11-29 10:25] LABS: PROTHROMBIN TIME 10.9 SEC (9.6-11.6)
[2021-11-29 10:27] LABS: PARTIAL THROMBOPLASTIN TIME 31.3 SEC (26.3-35.5)
[2021-11-29] MEDS ORDERED: ATORVASTATIN 40 MG TABLET PO ONE (11:30)
[2021-11-29] MEDS ORDERED: PANTOPRAZOLE 40 MG/VIAL IVP ONE (12:00)
[2021-11-29] MEDS ORDERED: HEPARIN 5,000 UNIT VIAL IV PRN (12:00)
[2021-11-29] MEDS ORDERED: ASPIRIN 81 MG EC TAB PO ONE (12:00)
[2021-11-29] MEDS ORDERED: LABETALOL 20MG SYG IV PRN (12:00)
[2021-11-29] MEDS ORDERED: HYDROMORPHONE 0.5 MG SYG (0.5MG/0.5ML) IVP PRN (12:00)
[2021-11-29] MEDS ORDERED: HEPARIN 25,000 UNITS/250ML D5W 250 ML IV ONE (12:05)
[2021-11-29] MEDS ORDERED: AMLODIPINE 5 MG TAB PO SCH ×2 (12:30→21:00)
[2021-11-29 12:31] LABS: HEMOGLOBIN A1C 8.6 % (4.0-6.0)
[2021-11-29] MEDS: HEPARIN 25,000 UNITS/250ML D5W 250 ML IV SCH (12:42)
[2021-11-29 13:05] VITALS: BP 130/73
[2021-11-29 16:11] VITALS: BP 138/69
[2021-11-29] MEDS: INSULIN HUMULIN R 100 UNIT/ML 3ML SQ SCH ×2 (16:20→20:53)
[2021-11-29 19:08] LABS: INR 1.03 (0.85-1.15); PROTHROMBIN TIME 11.2 SEC (9.6-11.6)
[2021-11-29 19:10] LABS: PARTIAL THROMBOPLASTIN TIME 37.4 SEC (26.3-35.5)
[2021-11-29 19:32] VITALS: BP 127/69
[2021-11-29] MEDS: LISINOPRIL 10 MG TABLET PO SCH (20:53)
[2021-11-29] MEDS: BUPROPION HCL 150 MG TABLET.SA PO SCH (20:53)
[2021-11-29] MEDS: ATORVASTATIN 40 MG TABLET PO SCH (20:53)
[2021-11-29 23:13] VITALS: BP 134/77
[2021-11-30] VITALS (13 sets, daily range): BP systolic 117–180; BP diastolic 62–83
[2021-11-30] MEDS: HEPARIN 25,000 UNITS/250ML D5W 250 ML IV SCH (05:13)
[2021-11-30] MEDS: INSULIN HUMULIN R 100 UNIT/ML 3ML SQ SCH ×4 (06:36→20:58)
[2021-11-30 08:06] LABS: BASOPHILS % (AUTO) 1.5 % (0.0-5.0); EOSINOPHILS % (AUTO) 5.1 % (0.0-8.0); HEMATOCRIT 44.7 % (42-54); LYMPHOCYTES % (AUTO) 24.5 % (21.0-51.0); MEAN CORPUSCULAR HEMOGLOBIN 29.1 pg (27.0-33.0); MEAN CORPUSCULAR HGB CONC 32.7 g/dL (32.0-36.0); MEAN CORPUSCULAR VOLUME 89.2 fL (79-99); MONOCYTES % (AUTO) 5.5 % (3.0-13.0); NEUTROPHILS % (AUTO) 63.1 % (40.0-77.0); PLATELET COUNT (AUTO) 236 K/uL (130-400); RED BLOOD CELL COUNT(AUTO) 5.01 MIL/uL (4.50-6.20); RED CELL DISTRIBUTION WIDTH 13.5 % (11.0-15.5); WHITE BLOOD COUNT (AUTO) 10.6 K/uL (4.8-10.8)
[2021-11-30 08:17] LABS: CREATININE 0.7 mg/dL (0.5-1.5)
[2021-11-30] MEDS: BUPROPION HCL 150 MG TABLET.SA PO SCH ×2 (08:21→20:44)
[2021-11-30] MEDS: ASPIRIN 81 MG EC TAB PO SCH (08:21)
[2021-11-30] MEDS: PANTOPRAZOLE 40 MG/VIAL IVP SCH (08:21)
[2021-11-30] MEDS: LISINOPRIL 10 MG TABLET PO SCH ×2 (08:22→20:44)
[2021-11-30] MEDS ORDERED: LOSARTAN 50 MG TABLET PO SCH (09:00)
[2021-11-30] MEDS ORDERED: NITROGLYCERIN 50MG VIAL ONE (12:42)
[2021-11-30] MEDS ORDERED: HEPARIN 10,000 UNIT/10ML (1,000 UNIT/ML) VIAL ONE (12:42)
[2021-11-30] MEDS ORDERED: MIDAZOLAM HCL 1 MG/ML 2ML VIAL ONE (12:43)
[2021-11-30] MEDS ORDERED: IODIXANOL 320 MG/ML 100 ML VIAL ONE (12:43)
[2021-11-30] MEDS ORDERED: FENTANYL CITRATE PF 50 MCG/1 ML 2ML VIAL ONE (12:43)
[2021-11-30] MEDS ORDERED: LIDOCAINE HCL 1% MDV 50ML VIAL ONE (12:44)
[2021-11-30] MEDS ORDERED: 0.9%NACL 1000ML 1,000 ML IV SCH (15:00)
[2021-11-30] MEDS: ATORVASTATIN 40 MG TABLET PO SCH (20:45)
[2021-11-30] MEDS: ACETAMINOPHEN 500 MG TABLET PO PRN (20:45)
[2021-12-01 03:09] VITALS: BP 147/69
[2021-12-01 04:59] LABS: CREATININE 0.7 mg/dL (0.5-1.5)
[2021-12-01] MEDS: INSULIN HUMULIN R 100 UNIT/ML 3ML SQ SCH ×4 (05:29→20:03)
[2021-12-01 08:00] VITALS: BP 147/76
[2021-12-01] MEDS: BUPROPION HCL 150 MG TABLET.SA PO SCH ×2 (10:02→19:57)
[2021-12-01] MEDS: PANTOPRAZOLE 40 MG/VIAL IVP SCH (10:02)
[2021-12-01] MEDS: ASPIRIN 81 MG EC TAB PO SCH (10:03)
[2021-12-01] MEDS: LISINOPRIL 10 MG TABLET PO SCH ×2 (10:03→19:57)
[2021-12-01] MEDS: AMLODIPINE 5 MG TAB PO SCH (10:03)
[2021-12-01 12:00] VITALS: BP 156/79
[2021-12-01 16:00] VITALS: BP 159/82
[2021-12-01] MEDS ORDERED: CLOP75TA32 PO (17:52)
[2021-12-01] MEDS ORDERED: RIVA2.5T PO (17:52)
[2021-12-01 19:43] VITALS: BP 141/75
[2021-12-01] MEDS: ATORVASTATIN 40 MG TABLET PO SCH (19:57)
[2021-12-01] MEDS: ACETAMINOPHEN 500 MG TABLET PO PRN (19:58)
[2021-12-01 23:33] VITALS: BP 140/71
[2021-12-02 03:38] VITALS: BP 144/66
[2021-12-02] MEDS: INSULIN HUMULIN R 100 UNIT/ML 3ML SQ SCH ×4 (06:00→20:42)
[2021-12-02 08:00] VITALS: BP 147/71
[2021-12-02] MEDS: PANTOPRAZOLE 40 MG/VIAL IVP SCH (09:02)
[2021-12-02] MEDS: AMLODIPINE 5 MG TAB PO SCH (09:03)
[2021-12-02] MEDS: HYDROCHLOROTHIAZIDE 25 MG TABLET PO SCH (09:03)
[2021-12-02] MEDS: LISINOPRIL 40 MG TABLET PO SCH (09:03)
[2021-12-02] MEDS: ASPIRIN 81 MG EC TAB PO SCH (09:03)
[2021-12-02] MEDS: BUPROPION HCL 150 MG TABLET.SA PO SCH ×2 (09:03→20:41)
[2021-12-02 12:00] VITALS: BP 156/78
[2021-12-02 16:00] VITALS: BP 139/71
[2021-12-02 20:20] VITALS: BP 145/78
[2021-12-02] MEDS: ATORVASTATIN 40 MG TABLET PO SCH (20:42)
[2021-12-03] VITALS (37 sets, daily range): BP systolic 62–167; BP diastolic 40–87
[2021-12-03 04:13] LABS: HEMATOCRIT 42.5 % (42-54); MEAN CORPUSCULAR HEMOGLOBIN 28.5 pg (27.0-33.0); MEAN CORPUSCULAR HGB CONC 33.2 g/dL (32.0-36.0); RED BLOOD CELL COUNT(AUTO) 4.94 MIL/uL (4.50-6.20); RED CELL DISTRIBUTION WIDTH 12.9 % (11.0-15.5); WHITE BLOOD COUNT (AUTO) 10.3 K/uL (4.8-10.8)
[2021-12-03 04:23] LABS: INR 0.97 (0.85-1.15); PROTHROMBIN TIME 10.6 SEC (9.6-11.6)
[2021-12-03 04:25] LABS: PARTIAL THROMBOPLASTIN TIME 28.9 SEC (26.3-35.5)
[2021-12-03 04:30] LABS: CREATININE 0.7 mg/dL (0.5-1.5); POTASSIUM 3.2 mmol/L (3.5-5.1)
[2021-12-03] MEDS: INSULIN HUMULIN R 100 UNIT/ML 3ML SQ SCH ×4 (07:30→20:10)
[2021-12-03] MEDS: BUPROPION HCL 150 MG TABLET.SA PO SCH ×2 (07:31→20:13)
[2021-12-03] MEDS: ASPIRIN 81 MG EC TAB PO SCH (09:00)
[2021-12-03] MEDS: AMLODIPINE 5 MG TAB PO SCH (09:00)
[2021-12-03] MEDS: LISINOPRIL 40 MG TABLET PO SCH (09:00)
[2021-12-03] MEDS: HYDROCHLOROTHIAZIDE 25 MG TABLET PO SCH (09:00)
[2021-12-03] MEDS: PANTOPRAZOLE 40 MG/VIAL IVP SCH (09:17)
[2021-12-03] MEDS ORDERED: CEFAZOLIN SODIUM 1 GM VIAL IVP PRN (10:00)
[2021-12-03] MEDS ORDERED: LIDOCAINE PF 100MG/5ML (2%) SYRINGE 5ML ONE (10:40)
[2021-12-03] MEDS ORDERED: DEXAMETHASONE SOD PHOSPHATE 10MG/ML 1ML VIAL ONE (10:40)
[2021-12-03] MEDS ORDERED: SUCCINYLCHOLINE CHLORIDE 20 MG/ML 10 ML VIAL ONE (10:40)
[2021-12-03] MEDS ORDERED: PROPOFOL 10 MG/ML 20ML VIAL IV ONE (10:41)
[2021-12-03] MEDS ORDERED: GLYCOPYRROLATE 1 MG/5 ML SYRINGE ONE (10:41)
[2021-12-03] MEDS ORDERED: FENTANYL CITRATE PF 50 MCG/1 ML 2ML VIAL ONE ×2 (10:41→12:23)
[2021-12-03] MEDS ORDERED: NEOSTIGMINE 5MG/5ML SYR IV ONE (10:41)
[2021-12-03] MEDS ORDERED: ONDANSETRON 4MG INJ ONE (10:41)
[2021-12-03] MEDS ORDERED: ROCURONIUM 10MG/1ML SYR 10 MG/ML ML ONE (10:42)
[2021-12-03] MEDS ORDERED: MIDAZOLAM HCL 1 MG/ML 2ML VIAL ONE (10:42)
[2021-12-03] MEDS ORDERED: 0.9%NACL 1000ML 1,000 ML IV ONE (10:57)
[2021-12-03] MEDS ORDERED: CEFAZOLIN SODIUM 1 GM VIAL ONE (11:00)
[2021-12-03] MEDS ORDERED: POTASSIUM CHLORIDE 10MEQ/100ML 10 MEQ/100 ML ML IV SCH (11:30)
[2021-12-03] MEDS ORDERED: HEPARIN 10,000 UNIT/10ML (1,000 UNIT/ML) VIAL ONE (13:47)
[2021-12-03] MEDS ORDERED: PROTAMINE SULFATE 10 MG/ML 25ML VIAL IV ONE (14:00)
[2021-12-03] MEDS ORDERED: ASPIRIN 81MG CHEW TAB PO ONE (15:00)
[2021-12-03] MEDS ORDERED: ASPIRIN 81MG CHEW TAB ONE (16:25)
[2021-12-03] MEDS: ATORVASTATIN 40 MG TABLET PO SCH (20:08)
[2021-12-04] VITALS (39 sets, daily range): BP systolic 107–164; BP diastolic 50–91
[2021-12-04] MEDS: ACETAMINOPHEN 500 MG TABLET PO PRN ×2 (00:13→04:54)
[2021-12-04 03:58] LABS: HEMATOCRIT 41.2 % (42-54); MEAN CORPUSCULAR HEMOGLOBIN 28.6 pg (27.0-33.0); MEAN CORPUSCULAR HGB CONC 32.8 g/dL (32.0-36.0); MEAN CORPUSCULAR VOLUME 87.3 fL (79-99); RED BLOOD CELL COUNT(AUTO) 4.72 MIL/uL (4.50-6.20); RED CELL DISTRIBUTION WIDTH 13.2 % (11.0-15.5); WHITE BLOOD COUNT (AUTO) 13.3 K/uL (4.8-10.8)
[2021-12-04 04:07] LABS: CREATININE 0.9 mg/dL (0.5-1.5); POTASSIUM 4.1 mmol/L (3.5-5.1)
[2021-12-04] MEDS: INSULIN HUMULIN R 100 UNIT/ML 3ML SQ SCH ×6 (05:22→21:55)
[2021-12-04] MEDS: LISINOPRIL 40 MG TABLET PO SCH (07:55)
[2021-12-04] MEDS: HYDROCHLOROTHIAZIDE 25 MG TABLET PO SCH (07:55)
[2021-12-04] MEDS: ASPIRIN 81 MG EC TAB PO SCH (07:56)
[2021-12-04] MEDS: PANTOPRAZOLE 40 MG/VIAL IVP SCH (07:56)
[2021-12-04] MEDS: AMLODIPINE 5 MG TAB PO SCH (07:56)
[2021-12-04] MEDS: BUPROPION HCL 150 MG TABLET.SA PO SCH ×2 (07:59→21:46)
[2021-12-04] MEDS: APIXABAN 2.5 MG TABLET PO SCH ×2 (08:05→21:45)
[2021-12-04] MEDS ORDERED: TRAMADOL HCL 50 MG TABLET PO PRN (08:30)
[2021-12-04] MEDS ORDERED: KETOROLAC 30MG VIAL (30MG/ML) IV PRN (08:30)
[2021-12-04] MEDS: DOXAZOSIN MESYLATE 2 MG TABLET PO SCH (11:20)
[2021-12-04] MEDS ORDERED: INSULIN GLARGINE 100 UNITS/ML 10 ML VIAL SQ SCH ×2 (11:30→21:00)
[2021-12-04] MEDS: KETOROLAC 30MG VIAL (30MG/ML) IV SCH (15:53)
[2021-12-04] MEDS ORDERED: FAMOTIDINE 20MG TAB ONE (19:04)
[2021-12-04] MEDS: ATORVASTATIN 40 MG TABLET PO SCH (21:45)
[2021-12-04] MEDS: FAMOTIDINE 20MG TAB PO SCH (21:46)
[2021-12-04] MEDS: INSULIN GLARGINE 100 UNITS/ML 10 ML VIAL SQ SCH (21:54)
[2021-12-05] VITALS (18 sets, daily range): BP systolic 116–152; BP diastolic 55–75
[2021-12-05] MEDS: INSULIN HUMULIN R 100 UNIT/ML 3ML SQ SCH ×7 (06:11→20:46)
[2021-12-05 08:00] LABS: BASOPHILS % (AUTO) 1.1 % (0.0-5.0); EOSINOPHILS % (AUTO) 3.8 % (0.0-8.0); LYMPHOCYTES % (AUTO) 20.1 % (21.0-51.0); MEAN CORPUSCULAR HEMOGLOBIN 28.4 pg (27.0-33.0); MEAN CORPUSCULAR HGB CONC 32.8 g/dL (32.0-36.0); MEAN CORPUSCULAR VOLUME 86.7 fL (79-99); MONOCYTES % (AUTO) 8.1 % (3.0-13.0); NEUTROPHILS % (AUTO) 66.6 % (40.0-77.0); PLATELET COUNT (AUTO) 226 K/uL (130-400); RED BLOOD CELL COUNT(AUTO) 4.15 MIL/uL (4.50-6.20); RED CELL DISTRIBUTION WIDTH 13.2 % (11.0-15.5); WHITE BLOOD COUNT (AUTO) 10.9 K/uL (4.8-10.8)
[2021-12-05 08:15] LABS: CREATININE 0.7 mg/dL (0.5-1.5); POTASSIUM 3.5 mmol/L (3.5-5.1)
[2021-12-05] MEDS: INSULIN GLARGINE 100 UNITS/ML 10 ML VIAL SQ SCH ×2 (08:36→20:46)
[2021-12-05] MEDS: HYDROCHLOROTHIAZIDE 25 MG TABLET PO SCH (08:40)
[2021-12-05] MEDS: AMLODIPINE 5 MG TAB PO SCH (08:40)
[2021-12-05] MEDS: LINAGLIPTIN 5 MG TABLET PO SCH (08:40)
[2021-12-05] MEDS: ASPIRIN 81 MG EC TAB PO SCH (08:40)
[2021-12-05] MEDS: APIXABAN 2.5 MG TABLET PO SCH ×2 (08:40→20:08)
[2021-12-05] MEDS: LISINOPRIL 40 MG TABLET PO SCH (08:40)
[2021-12-05] MEDS: BUPROPION HCL 150 MG TABLET.SA PO SCH ×2 (08:40→20:08)
[2021-12-05] MEDS: FAMOTIDINE 20MG TAB PO SCH ×2 (08:40→20:08)
[2021-12-05] MEDS: DOXAZOSIN MESYLATE 2 MG TABLET PO SCH (08:41)
[2021-12-05] MEDS: KETOROLAC 30MG VIAL (30MG/ML) IV SCH ×3 (08:49→20:09)
[2021-12-05] MEDS ORDERED: INSULIN GLARGINE 100 UNITS/ML 10 ML VIAL SQ ONE (09:00)
[2021-12-05] MEDS: ATORVASTATIN 40 MG TABLET PO SCH (20:08)
[2021-12-06] MEDS: KETOROLAC 30MG VIAL (30MG/ML) IV SCH ×2 (03:39→10:57)
[2021-12-06 04:18] VITALS: BP 150/66
[2021-12-06] MEDS: INSULIN HUMULIN R 100 UNIT/ML 3ML SQ SCH ×6 (06:04→16:20)
[2021-12-06 07:32] LABS: BASOPHILS % (AUTO) 0.9 % (0.0-5.0); EOSINOPHILS % (AUTO) 2.8 % (0.0-8.0); HEMATOCRIT 36.6 % (42-54); LYMPHOCYTES % (AUTO) 19.5 % (21.0-51.0); MEAN CORPUSCULAR HEMOGLOBIN 29.2 pg (27.0-33.0); MEAN CORPUSCULAR HGB CONC 33.1 g/dL (32.0-36.0); MEAN CORPUSCULAR VOLUME 88.4 fL (79-99); MONOCYTES % (AUTO) 7.7 % (3.0-13.0); NEUTROPHILS % (AUTO) 68.7 % (40.0-77.0); PLATELET COUNT (AUTO) 226 K/uL (130-400); RED BLOOD CELL COUNT(AUTO) 4.14 MIL/uL (4.50-6.20); RED CELL DISTRIBUTION WIDTH 13.4 % (11.0-15.5); WHITE BLOOD COUNT (AUTO) 10.5 K/uL (4.8-10.8)
[2021-12-06 07:39] LABS: CREATININE 0.8 mg/dL (0.5-1.5); POTASSIUM 3.7 mmol/L (3.5-5.1)
[2021-12-06 08:00] VITALS: BP 125/64
[2021-12-06] MEDS: INSULIN GLARGINE 100 UNITS/ML 10 ML VIAL SQ SCH (08:40)
[2021-12-06] MEDS: ASPIRIN 81 MG EC TAB PO SCH (08:42)
[2021-12-06] MEDS: HYDROCHLOROTHIAZIDE 25 MG TABLET PO SCH (08:42)
[2021-12-06] MEDS: DOXAZOSIN MESYLATE 2 MG TABLET PO SCH (08:42)
[2021-12-06] MEDS: FAMOTIDINE 20MG TAB PO SCH (08:42)
[2021-12-06] MEDS: LINAGLIPTIN 5 MG TABLET PO SCH (08:42)
[2021-12-06] MEDS: BUPROPION HCL 150 MG TABLET.SA PO SCH (08:42)
[2021-12-06] MEDS: APIXABAN 2.5 MG TABLET PO SCH (08:42)
[2021-12-06] MEDS: LISINOPRIL 40 MG TABLET PO SCH (08:42)
[2021-12-06] MEDS: AMLODIPINE 5 MG TAB PO SCH (10:57)
[2021-12-06 12:00] VITALS: BP 153/75
[2021-12-06] MEDS ORDERED: KCL 20 MEQ ERTAB PO ONE (15:30)
[2021-12-06 16:00] VITALS: BP 151/79
[2021-12-06] MEDS ORDERED: INSULIN HUMULIN R 100 UNIT/ML 3ML SQ SCH (17:00)
[2021-12-06] MEDS ORDERED: RIVA2.5T PO (17:10)
[2021-12-06] MEDS ORDERED: LIRA0.6P SQ (17:10)
[2021-12-06] MEDS ORDERED: ATOR40TA69 PO (17:10)
[2021-12-06] MEDS ORDERED: INSU100I24 SQ (17:10)
[2021-12-06] MEDS ORDERED: METF-445 PO (17:10)
[2021-12-06] MEDS ORDERED: HYDR25TA PO (17:10)
[2021-12-06] MEDS ORDERED: FAMO20TA8 PO (17:10)
[2021-12-06] MEDS ORDERED: DOXA2TAB2 PO (17:10)
[2021-12-06] MEDS ORDERED: LISI40TA9 PO (17:10)
[2021-12-06] MEDS ORDERED: SITA100T12 PO (17:10)
[2021-12-06] MEDS ORDERED: INSULIN GLARGINE 100 UNITS/ML 10 ML VIAL SQ SCH (21:00)
== END 2021-12-06 18:30 | disposition home or self-care (01) | DRG 253 ==
LOC: EDH 09:14 → EDHIP 09:15 → 2DH 12:16 → 2CH 12-03 15:56
PROVIDERS: ADMIT Internal Medicine; ATTEND Internal Medicine
PROC: B41F1ZZ Fluoroscopy of Right Lower Extremity Arteries using Low Osmolar Contrast (ICD-10-PCS; 2021-11-30)
PROC: 041K09L Bypass Right Femoral Artery to Popliteal Artery with Autologous Venous Tissue, Open Approach (ICD-10-PCS; principal; 2021-12-03 11:35)
DX: T82.868A Thrombosis due to vascular prosthetic devices, implants and grafts, initial encounter (principal); L03.115 Cellulitis of right lower limb; E11.51 Type 2 diabetes mellitus with diabetic peripheral angiopathy without gangrene; I70.221 Atherosclerosis of native arteries of extremities with rest pain, right leg; E78.00 Pure hypercholesterolemia, unspecified; F17.200 Nicotine dependence, unspecified, uncomplicated; E78.5 Hyperlipidemia, unspecified; I10 Essential (primary) hypertension; Z20.822 Contact with and (suspected) exposure to COVID-19; E87.70 Fluid overload, unspecified; Y83.2 Surgical operation with anastomosis, bypass or graft as the cause of abnormal reaction of the patient, or of later complication, without mention of misadventure at the time of the procedure; Z79.01 Long term (current) use of anticoagulants; Z79.82 Long term (current) use of aspirin; Z79.84 Long term (current) use of oral hypoglycemic drugs; Z79.899 Other long term (current) drug therapy; Z82.3 Family history of stroke; Z82.0 Family history of epilepsy and other diseases of the nervous system; Z82.49 Family history of ischemic heart disease and other diseases of the circulatory system; Z82.5 Family history of asthma and other chronic lower respiratory diseases; Z83.3 Family history of diabetes mellitus; Z91.19 Patient's noncompliance with other medical treatment and regimen; Y92.89 Other specified places as the place of occurrence of the external cause
CPT/HCPCS: 36246; 36415; 70450; 73562; 73600; 75710; 75716; 80048; 80053; 80061; 82948; 83036; 84443; 85025; 85027; 85610; 85730; 86850; 86900; 86901; 87635; 93005; 93926; 93971; 97039; 99156; 99157; 99291; C1769; C1894; C9113; G0378; J0330; J0690; J1100; J1644; J1815; J1885; J2001; J2250; J2405; J2704; J2710; J2720; J3010; J3490; J7030; Q9967

== ENCOUNTER 2021-12-08 14:23 | Emergency (ER) | payer OTHER ==
[~2021-12-08] VITALS: Ht 170.2 cm; Wt 81.6 kg
[~2021-12-08 14:23] MED LIST changes: -BACI1POW3 MC; -CEPH500B PO; +DOXA2TAB2 PO; +FAMO20TA8 PO; -LISI30TA4 PO; +LISI40TA9 PO; -LOSA50TA2 PO; +METF-445 PO; -METF-910 PO; -PANT40TA PO; +RIVA2.5T PO; +SITA100T12 PO; -SITA25TA5 PO
[2021-12-08] MEDS ORDERED: 0.9%NACL 1000ML 1,000 ML IV ONE (14:30)
[2021-12-08 14:40] LABS: BASOPHILS % (AUTO) 0.8 % (0.0-5.0); EOSINOPHILS % (AUTO) 0.4 % (0.0-8.0); HEMATOCRIT 42.5 % (42-54); LYMPHOCYTES % (AUTO) 12.2 % (21.0-51.0); MEAN CORPUSCULAR HEMOGLOBIN 28.9 pg (27.0-33.0); MEAN CORPUSCULAR HGB CONC 32.5 g/dL (32.0-36.0); MEAN CORPUSCULAR VOLUME 88.9 fL (79-99); MONOCYTES % (AUTO) 5.6 % (3.0-13.0); NEUTROPHILS % (AUTO) 80.7 % (40.0-77.0); PLATELET COUNT (AUTO) 335 K/uL (130-400); RED BLOOD CELL COUNT(AUTO) 4.78 MIL/uL (4.50-6.20); RED CELL DISTRIBUTION WIDTH 13.6 % (11.0-15.5); WHITE BLOOD COUNT (AUTO) 15.1 K/uL (4.8-10.8)
[2021-12-08 14:52] LABS: CREATININE 1.1 mg/dL (0.5-1.5); POTASSIUM 4.3 mmol/L (3.5-5.1)
[2021-12-08 14:56] LABS: ALBUMIN 3.3 g/dL (3.5-5.0); BILIRUBIN,TOTAL 0.6 mg/dL (0.2-1.0); TOTAL PROTEIN, SERUM 8.6 g/dL (6.0-8.3)
[2021-12-08] MEDS ORDERED: FAMOTIDINE 20MG VIAL IV ONE (15:00)
[2021-12-08] MEDS ORDERED: ONDANSETRON 4MG INJ IVP ONE (15:00)
[2021-12-08 15:04] LABS: APPEARANCE,URINE Clear (CLEAR); BILIRUBIN,URINE Negative (NEGATIVE); COLOR,URINE Dark Yellow (YELLOW); GLUCOSE, URINE (UA) >=1000 mg/dL (NEGATIVE); KETONES,URINE 15 mg/dL (NEGATIVE); LEUKOCYTE ESTERASE ,URINE Negative (NEGATIVE); NITRATE,URINE Negative (NEGATIVE); OCCULT BLOOD,URINE Negative (NEGATIVE); PH,URINE 5.5 (5.0-8.0); PROTEIN,URINE 300 mg/dL (NEGATIVE)
[2021-12-08 15:26] LABS: RBC,URINE 0-1 /HPF (0-1)
[2021-12-08 15:27] LABS: BACTERIA,URINE Rare /HPF (None Seen); YEAST,URINE BUDDING Rare /HPF (None Seen)
[2021-12-08 15:28] LABS: SQUAMOUS EPITHELIAL CELL,UR Rare /HPF (0-2)
[2021-12-08 16:11] VITALS: BP 136/67
[2021-12-08] MEDS ORDERED: ONDA4TAB10 PO (16:41)
== END 2021-12-08 16:50 | disposition home or self-care (01) ==
LOC: EDH 14:23
DX: R11.2 Nausea with vomiting, unspecified (principal); E11.9 Type 2 diabetes mellitus without complications; E78.00 Pure hypercholesterolemia, unspecified; I10 Essential (primary) hypertension; Z98.890 Other specified postprocedural states; Z79.82 Long term (current) use of aspirin; Z79.899 Other long term (current) drug therapy; Z79.84 Long term (current) use of oral hypoglycemic drugs
CPT/HCPCS: 36415; 80053; 81001; 83615; 83690 ×2; 84484; 85025; 93005; 96361; 96374; 96375; 99284; J2405; J3490; J7030

== ENCOUNTER 2022-02-01 09:22 | Inpatient (IN) | payer OTHER ==
[~2022-02-01] VITALS: Ht 170.2 cm; Wt 81.6 kg
[~2022-02-01 09:22] MED LIST changes: -DOXA2TAB2 PO; +DOXY100C5 PO; +ONDA4TAB10 PO
[2022-02-01 10:17] LABS: APPEARANCE,URINE Clear (CLEAR); BILIRUBIN,URINE Negative (NEGATIVE); COLOR,URINE Yellow (YELLOW); GLUCOSE, URINE (UA) >=1000 mg/dL (NEGATIVE); KETONES,URINE Negative (NEGATIVE); LEUKOCYTE ESTERASE ,URINE Negative (NEGATIVE); NITRATE,URINE Negative (NEGATIVE); OCCULT BLOOD,URINE Negative (NEGATIVE); PH,URINE 5.5 (5.0-8.0); PROTEIN,URINE POS 2+ mg/dL (NEGATIVE); UROBILINOGEN,URINE 0.2 mg/dL (0.2-1.0)
[2022-02-01 10:33] LABS: BACTERIA,URINE Few /HPF (None Seen); RBC,URINE 0-1 /HPF (0-1); WBC,URINE 0-1 /HPF (0-1)
[2022-02-01 11:42] LABS: BASOPHILS % (AUTO) 1.3 % (0.0-5.0); HEMATOCRIT 44.8 % (42-54); LYMPHOCYTES % (AUTO) 20.3 % (21.0-51.0); MEAN CORPUSCULAR HEMOGLOBIN 28.8 pg (27.0-33.0); MEAN CORPUSCULAR HGB CONC 32.8 g/dL (32.0-36.0); MEAN CORPUSCULAR VOLUME 87.7 fL (79-99); MONOCYTES % (AUTO) 6.4 % (3.0-13.0); NEUTROPHILS % (AUTO) 69.6 % (40.0-77.0); PLATELET COUNT (AUTO) 259 K/uL (130-400); RED BLOOD CELL COUNT(AUTO) 5.11 MIL/uL (4.50-6.20); RED CELL DISTRIBUTION WIDTH 13.9 % (11.0-15.5); WHITE BLOOD COUNT (AUTO) 13.7 K/uL (4.8-10.8)
[2022-02-01 11:50] LABS: CREATININE 0.9 mg/dL (0.5-1.5); POTASSIUM 4.1 mmol/L (3.5-5.1)
[2022-02-01] MEDS ORDERED: ZOSYN 3.375GM +NS 50ML IV SCH (12:00)
[2022-02-01] MEDS ORDERED: ROSU40TA21 PO (12:43)
[2022-02-01] MEDS ORDERED: MORPHINE 4 MG SYG IV PRN (14:30)
[2022-02-01] MEDS ORDERED: LACTULOSE 20 GM/30 ML UDCUP PO PRN (14:30)
[2022-02-01] MEDS: 0.9%NACL 1000ML 1,000 ML IV SCH (14:30)
[2022-02-01] MEDS ORDERED: ONDANSETRON 4MG INJ IV PRN (14:30)
[2022-02-01] MEDS ORDERED: VANCOMYCIN PROTOCOL PER PHARMACY IV PRN (14:30)
[2022-02-01] MEDS ORDERED: ACETAMINOPHEN 325 MG TAB PO PRN ×2 (14:30)
[2022-02-01] MEDS ORDERED: ACETAMINOPHEN WITH CODEINE 1 TAB TAB PO PRN (14:30)
[2022-02-01] MEDS: ***HM*** (Dapagliflozin Propanediol (Farxiga) 10 MG) PO SCH (14:33)
[2022-02-01] MEDS: LINAGLIPTIN 5 MG TABLET PO SCH (14:42)
[2022-02-01] MEDS ORDERED: COMPOUND IV REFRIGERATED 1 EACH IVSOLN MISC PRN (15:00)
[2022-02-01] MEDS: VANCOMYCIN 1.25GM/NS 250ML IVPB SCH ×2 (15:47)
[2022-02-01] MEDS: INSULIN LISPRO 100 UNIT/ML 3ML SQ SCH ×3 (16:30→21:00)
[2022-02-01] MEDS: METFORMIN HCL 850 MG TABLET PO SCH (17:10)
[2022-02-01 18:36] VITALS: BP 96/52
[2022-02-01 20:00] VITALS: BP 113/61
[2022-02-01] MEDS: INSULIN GLARGINE 100 UNITS/ML 10 ML VIAL SQ SCH (21:00)
[2022-02-01] MEDS: RIVAROXABAN 2.5 MG TABLET PO SCH (22:15)
[2022-02-01] MEDS: ATORVASTATIN 40 MG TABLET PO SCH (22:15)
[2022-02-01] MEDS: FAMOTIDINE 20MG TAB PO SCH (22:15)
[2022-02-01] MEDS: ZOSYN 3.375GM+NS 50ML 50 ML IV SCH (22:15)
[2022-02-02 00:27] VITALS: BP 124/55
[2022-02-02] MEDS: 0.9%NACL 1000ML 1,000 ML IV SCH ×2 (00:30→11:52)
[2022-02-02] MEDS: VANCOMYCIN 1.25GM/NS 250ML IVPB SCH ×4 (03:55→08:49)
[2022-02-02 04:00] VITALS: BP 115/55
[2022-02-02 05:16] LABS: EOSINOPHILS % (AUTO) 3.8 % (0.0-8.0); HEMATOCRIT 39.1 % (42-54); LYMPHOCYTES % (AUTO) 13.2 % (21.0-51.0); MEAN CORPUSCULAR HGB CONC 33.5 g/dL (32.0-36.0); MEAN CORPUSCULAR VOLUME 86.7 fL (79-99); NEUTROPHILS % (AUTO) 75.7 % (40.0-77.0); PLATELET COUNT (AUTO) 221 K/uL (130-400); RED BLOOD CELL COUNT(AUTO) 4.51 MIL/uL (4.50-6.20); RED CELL DISTRIBUTION WIDTH 14.1 % (11.0-15.5); WHITE BLOOD COUNT (AUTO) 13.1 K/uL (4.8-10.8)
[2022-02-02 05:22] LABS: POTASSIUM 3.8 mmol/L (3.5-5.1)
[2022-02-02] MEDS: ZOSYN 3.375GM+NS 50ML 50 ML IV SCH ×3 (05:37→23:18)
[2022-02-02 05:40] LABS: CREATININE 0.9 mg/dL (0.5-1.5)
[2022-02-02] MEDS: INSULIN LISPRO 100 UNIT/ML 3ML SQ SCH ×7 (05:53→21:00)
[2022-02-02 07:35] VITALS: BP 113/59
[2022-02-02] MEDS: LINAGLIPTIN 5 MG TABLET PO SCH (08:46)
[2022-02-02] MEDS: METFORMIN HCL 850 MG TABLET PO SCH ×2 (08:46→16:58)
[2022-02-02] MEDS: HYDROCHLOROTHIAZIDE 25 MG TABLET PO SCH (08:46)
[2022-02-02] MEDS: LISINOPRIL 40 MG TABLET PO SCH (08:47)
[2022-02-02] MEDS: FAMOTIDINE 20MG TAB PO SCH ×2 (08:47→22:47)
[2022-02-02] MEDS: RIVAROXABAN 2.5 MG TABLET PO SCH ×2 (08:47→22:47)
[2022-02-02] MEDS: ASPIRIN 81 MG EC TAB PO SCH (08:47)
[2022-02-02] MEDS: ACETAMINOPHEN WITH CODEINE 1 TAB TAB PO PRN ×2 (08:47→22:48)
[2022-02-02] MEDS: LIRAGLUTIDE 0.6 MG SQ SCH (09:00)
[2022-02-02] MEDS ORDERED: ENOXAPARIN SODIUM 40 MG/0.4 ML SYRINGE SQ SCH (09:00)
[2022-02-02] MEDS: ***HM*** (Dapagliflozin Propanediol (Farxiga) 10 MG) PO SCH (09:03)
[2022-02-02 11:22] VITALS: BP 103/55
[2022-02-02 15:05] VITALS: BP 105/56
[2022-02-02 20:00] VITALS: BP 120/63
[2022-02-02] MEDS: VANCOMYCIN 1G/250ML KIT 250 ML IV SCH (22:46)
[2022-02-02] MEDS: ATORVASTATIN 40 MG TABLET PO SCH (22:47)
[2022-02-02] MEDS: INSULIN GLARGINE 100 UNITS/ML 10 ML VIAL SQ SCH (22:50)
[2022-02-03] VITALS: BP 118/61
[2022-02-03 04:00] VITALS: BP 120/64
[2022-02-03] MEDS: 0.9%NACL 1000ML 1,000 ML IV SCH ×2 (04:19→08:19)
[2022-02-03] MEDS: ZOSYN 3.375GM+NS 50ML 50 ML IV SCH (04:19)
[2022-02-03 05:21] LABS: BASOPHILS % (AUTO) 0.9 % (0.0-5.0); EOSINOPHILS % (AUTO) 4.1 % (0.0-8.0); HEMATOCRIT 37.2 % (42-54); LYMPHOCYTES % (AUTO) 13.9 % (21.0-51.0); MEAN CORPUSCULAR HEMOGLOBIN 27.9 pg (27.0-33.0); MEAN CORPUSCULAR HGB CONC 32.3 g/dL (32.0-36.0); MEAN CORPUSCULAR VOLUME 86.5 fL (79-99); MONOCYTES % (AUTO) 7.5 % (3.0-13.0); NEUTROPHILS % (AUTO) 73.2 % (40.0-77.0); PLATELET COUNT (AUTO) 215 K/uL (130-400); RED CELL DISTRIBUTION WIDTH 13.8 % (11.0-15.5); WHITE BLOOD COUNT (AUTO) 12.7 K/uL (4.8-10.8)
[2022-02-03 05:52] LABS: ALBUMIN 2.8 g/dL (3.5-5.0); BILIRUBIN,TOTAL 0.5 mg/dL (0.2-1.0); POTASSIUM 3.4 mmol/L (3.5-5.1); TOTAL PROTEIN, SERUM 6.7 g/dL (6.0-8.3)
[2022-02-03] MEDS: INSULIN LISPRO 100 UNIT/ML 3ML SQ SCH ×2 (06:06→06:31)
[2022-02-03 06:52] VITALS: BP 125/58
[2022-02-03] MEDS ORDERED: 0.9% NACL 250ML 250 ML ONE (08:12)
[2022-02-03] MEDS: RIVAROXABAN 2.5 MG TABLET PO SCH (08:18)
[2022-02-03] MEDS: METFORMIN HCL 850 MG TABLET PO SCH (08:18)
[2022-02-03] MEDS: HYDROCHLOROTHIAZIDE 25 MG TABLET PO SCH (08:18)
[2022-02-03] MEDS: ASPIRIN 81 MG EC TAB PO SCH (08:18)
[2022-02-03] MEDS: LISINOPRIL 40 MG TABLET PO SCH (08:18)
[2022-02-03] MEDS: FAMOTIDINE 20MG TAB PO SCH (08:18)
[2022-02-03] MEDS: LINAGLIPTIN 5 MG TABLET PO SCH (08:19)
[2022-02-03] MEDS: VANCOMYCIN 1G/250ML KIT 250 ML IV SCH (08:19)
[2022-02-03] MEDS: ***HM*** (Dapagliflozin Propanediol (Farxiga) 10 MG) PO SCH (08:29)
[2022-02-03] MEDS: LIRAGLUTIDE 0.6 MG SQ SCH (08:29)
[2022-02-03] MEDS ORDERED: AMOX-426 PO (10:05)
[2022-02-03] MEDS ORDERED: ACET-2079 PO ×4 (10:06→11:22)
== END 2022-02-03 11:50 | disposition home or self-care (01) | DRG 728 ==
LOC: EDH 09:22 → EDHIP 09:23 → UNDOADMIN 14:04 → EDHIP 14:04 → 3DH 17:37 → 3AH 02-02 20:09
PROVIDERS: ADMIT Internal Medicine; ATTEND Internal Medicine
DX: N49.2 Inflammatory disorders of scrotum (principal); D72.829 Elevated white blood cell count, unspecified; I10 Essential (primary) hypertension; E78.5 Hyperlipidemia, unspecified; E11.65 Type 2 diabetes mellitus with hyperglycemia; E78.00 Pure hypercholesterolemia, unspecified; Z87.891 Personal history of nicotine dependence; Z82.5 Family history of asthma and other chronic lower respiratory diseases; Z83.3 Family history of diabetes mellitus; Z82.49 Family history of ischemic heart disease and other diseases of the circulatory system; Z82.0 Family history of epilepsy and other diseases of the nervous system; Z82.3 Family history of stroke
CPT/HCPCS: 36415; 76870; 80048; 80053; 80202; 81001; 82948; 83605; 85025; 85651; 87040; G0378; J1650; J2270; J2543; J3370; J7030; J7050

== ENCOUNTER 2022-02-07 12:07 | Inpatient (IN) | payer OTHER ==
[~2022-02-07] VITALS: Ht 170.2 cm; Wt 81.6 kg
[~2022-02-07 12:07] MED LIST changes: +ACET-2079 PO; -AMLO5TAB4 PO; +AMOX-426 PO; -ATOR40TA69 PO; -BUPR150T3 PO; -DOXY100C5 PO; -ONDA4TAB10 PO; +ROSU40TA21 PO
[2022-02-07] MEDS ORDERED: KETOROLAC 60 MG VIAL (30MG/ML) IM ONE (12:30)
[2022-02-07 13:02] LABS: APPEARANCE,URINE Clear (CLEAR); BILIRUBIN,URINE Negative (NEGATIVE); COLOR,URINE Yellow (YELLOW); GLUCOSE, URINE (UA) >=1000 mg/dL (NEGATIVE); KETONES,URINE Negative (NEGATIVE); LEUKOCYTE ESTERASE ,URINE Negative (NEGATIVE); NITRATE,URINE Negative (NEGATIVE); OCCULT BLOOD,URINE Negative (NEGATIVE); PH,URINE 6.5 (5.0-8.0); PROTEIN,URINE POS 2+ mg/dL (NEGATIVE)
[2022-02-07 13:05] LABS: BACTERIA,URINE Rare /HPF (None Seen); RBC,URINE 0-1 /HPF (0-1); SQUAMOUS EPITHELIAL CELL,UR Rare /HPF (0-2); WBC,URINE 0-1 /HPF (0-1)
[2022-02-07 13:07] LABS: BASOPHILS % (AUTO) 1.1 % (0.0-5.0); LYMPHOCYTES % (AUTO) 14.7 % (21.0-51.0); MEAN CORPUSCULAR HEMOGLOBIN 28.2 pg (27.0-33.0); MEAN CORPUSCULAR HGB CONC 32.7 g/dL (32.0-36.0); MEAN CORPUSCULAR VOLUME 86.1 fL (79-99); MONOCYTES % (AUTO) 7.6 % (3.0-13.0); NEUTROPHILS % (AUTO) 74.2 % (40.0-77.0); PLATELET COUNT (AUTO) 283 K/uL (130-400); RED BLOOD CELL COUNT(AUTO) 4.76 MIL/uL (4.50-6.20); RED CELL DISTRIBUTION WIDTH 13.5 % (11.0-15.5); WHITE BLOOD COUNT (AUTO) 13.9 K/uL (4.8-10.8)
[2022-02-07 13:22] LABS: ALBUMIN 3.4 g/dL (3.5-5.0); BILIRUBIN,TOTAL 0.2 mg/dL (0.2-1.0); CREATININE 0.9 mg/dL (0.5-1.5); POTASSIUM 4.1 mmol/L (3.5-5.1); TOTAL PROTEIN, SERUM 8.1 g/dL (6.0-8.3)
[2022-02-07] MEDS: ZOSYN 3.375GM +NS 50ML IV SCH ×2 (13:50→21:03)
[2022-02-07] MEDS ORDERED: VANCOMYCIN PROTOCOL PER PHARMACY IV PRN (15:00)
[2022-02-07] MEDS ORDERED: LACTULOSE 20 GM/30 ML UDCUP PO PRN (15:00)
[2022-02-07] MEDS ORDERED: MORPHINE 2 MG SYG IV PRN (15:00)
[2022-02-07] MEDS ORDERED: ACETAMINOPHEN 325 MG TAB PO PRN (15:00)
[2022-02-07] MEDS ORDERED: ONDANSETRON 4MG INJ IV PRN (15:00)
[2022-02-07] MEDS: CEFAZOLIN SODIUM 1 GM VIAL IVP SCH ×2 (15:29→23:05)
[2022-02-07] MEDS: VANCOMYCIN 1.25 GM/250 ML BAG 250 ML IV SCH (16:13)
[2022-02-07 19:29] LABS: PROTHROMBIN TIME 10.9 SEC (9.6-11.6)
[2022-02-07 19:31] LABS: PARTIAL THROMBOPLASTIN TIME 30.2 SEC (26.3-35.5)
[2022-02-07] MEDS: FAMOTIDINE 20MG VIAL IV SCH (21:02)
[2022-02-07 23:18] VITALS: BP 151/74
[2022-02-07 23:42] LABS: PROTEIN,URINE RANDOM 70.1 mg/dL (0-11.9)
[2022-02-08] VITALS (25 sets, daily range): BP systolic 103–159; BP diastolic 52–73
[2022-02-08] MEDS: VANCOMYCIN 1.25 GM/250 ML BAG 250 ML IV SCH ×2 (02:58→15:49)
[2022-02-08 05:23] LABS: BASOPHILS % (AUTO) 1.1 % (0.0-5.0); EOSINOPHILS % (AUTO) 3.4 % (0.0-8.0); HEMATOCRIT 38.6 % (42-54); LYMPHOCYTES % (AUTO) 14.5 % (21.0-51.0); MEAN CORPUSCULAR HEMOGLOBIN 27.6 pg (27.0-33.0); MEAN CORPUSCULAR HGB CONC 31.9 g/dL (32.0-36.0); MEAN CORPUSCULAR VOLUME 86.7 fL (79-99); MONOCYTES % (AUTO) 8.1 % (3.0-13.0); NEUTROPHILS % (AUTO) 72.4 % (40.0-77.0); PLATELET COUNT (AUTO) 267 K/uL (130-400); RED BLOOD CELL COUNT(AUTO) 4.45 MIL/uL (4.50-6.20); RED CELL DISTRIBUTION WIDTH 13.7 % (11.0-15.5)
[2022-02-08 05:34] LABS: CREATININE 0.8 mg/dL (0.5-1.5); CRP QUANTITATIVE 33.9 mg/L (0.00-9.0); POTASSIUM 3.6 mmol/L (3.5-5.1)
[2022-02-08 05:49] LABS: HEMOGLOBIN A1C 8.1 % (4.0-6.0)
[2022-02-08] MEDS: INSULIN HUMULIN R 100 UNIT/ML 3ML SQ SCH ×4 (05:53→17:18)
[2022-02-08] MEDS: CEFAZOLIN SODIUM 1 GM VIAL IVP SCH ×2 (06:16→15:43)
[2022-02-08 06:29] LABS: ERYTHROCYTE SEDIMENTATION RATE 72 MM/HR (0-20)
[2022-02-08] MEDS ORDERED: ASPIRIN 81MG CHEW TAB PO SCH (09:00)
[2022-02-08] MEDS: FAMOTIDINE 20MG VIAL IV SCH ×2 (09:15→20:45)
[2022-02-08] MEDS: LISINOPRIL 20 MG TABLET PO SCH (09:15)
[2022-02-08] MEDS ORDERED: 0.9%NACL 1000ML 1,000 ML IV ONE (12:45)
[2022-02-08] MEDS ORDERED: SUCCINYLCHOLINE 200MG/10ML SYR ONE (13:00)
[2022-02-08] MEDS ORDERED: LIDOCAINE PF 100MG/5ML (2%) SYRINGE 5ML ONE (13:00)
[2022-02-08] MEDS ORDERED: FENTANYL CITRATE PF 50 MCG/1 ML 2ML VIAL ONE (13:01)
[2022-02-08] MEDS ORDERED: ROCURONIUM 10MG/1ML SYR 10 MG/ML ML ONE (13:01)
[2022-02-08] MEDS ORDERED: MIDAZOLAM HCL 1 MG/ML 2ML VIAL ONE (13:01)
[2022-02-08] MEDS ORDERED: PROPOFOL 10 MG/ML 20ML VIAL IV ONE (13:01)
[2022-02-08] MEDS ORDERED: EPHEDRINE SULFATE 50 MG/ML AMPULE ONE (13:41)
[2022-02-08] MEDS ORDERED: GENTAMICIN SULFATE 80 MG/2 ML VIAL ONE (14:00)
[2022-02-08] MEDS ORDERED: GENTAMICIN SULFATE 80 MG/2 ML VIAL TP ONE (14:05)
[2022-02-08] MEDS ORDERED: BUPIVACAINE/EPI/PF 0.5% 30ML VIAL IJ ONE (14:13)
[2022-02-08] MEDS ORDERED: NEOMY SULF/BACITRAC ZN/POLY OINT 30GM TUBE TP ONE (14:37)
[2022-02-08] MEDS ORDERED: MEPERIDINE-PF 25 MG/ML SYG ONE (15:34)
[2022-02-08] MEDS: MORPHINE 4 MG SYG IV PRN (16:48)
[2022-02-08 17:03] LABS: MEAN CORPUSCULAR HEMOGLOBIN 27.7 pg (27.0-33.0); MEAN CORPUSCULAR HGB CONC 31.8 g/dL (32.0-36.0); MEAN CORPUSCULAR VOLUME 87.1 fL (79-99); PLATELET COUNT (AUTO) 253 K/uL (130-400); RED BLOOD CELL COUNT(AUTO) 4.48 MIL/uL (4.50-6.20); RED CELL DISTRIBUTION WIDTH 13.6 % (11.0-15.5); WHITE BLOOD COUNT (AUTO) 12.5 K/uL (4.8-10.8)
[2022-02-08 17:16] LABS: CREATININE 0.9 mg/dL (0.5-1.5); POTASSIUM 4.2 mmol/L (3.5-5.1)
[2022-02-08 17:33] LABS: EOSINOPHILS % (AUTO) 1.9 % (0.0-8.0); LYMPHOCYTES % (AUTO) 14.7 % (21.0-51.0); MONOCYTES % (AUTO) 6.4 % (3.0-13.0); NEUTROPHILS % (AUTO) 75.4 % (40.0-77.0)
[2022-02-08 17:34] LABS: BASOPHILS % (AUTO) 1.3 % (0.0-5.0)
[2022-02-08] MEDS: NEOMY SULF/BACITRA/POLYMYXIN B 1 EACH PACKET TP SCH (20:45)
[2022-02-08] MEDS: ATORVASTATIN 40 MG TABLET PO SCH (20:45)
[2022-02-08] MEDS: ACETAMINOPHEN 325 MG TAB PO PRN (20:46)
[2022-02-09] MEDS: CEFAZOLIN SODIUM 1 GM VIAL IVP SCH ×2 (00:29→06:35)
[2022-02-09] MEDS: LACTATED RINGERS 1000ML 1,000 ML IV SCH ×2 (04:30→14:54)
[2022-02-09] MEDS: VANCOMYCIN 1.25 GM/250 ML BAG 250 ML IV SCH ×2 (04:31→15:01)
[2022-02-09 04:35] VITALS: BP 134/64
[2022-02-09 05:49] LABS: BASOPHILS % (AUTO) 1.3 % (0.0-5.0); EOSINOPHILS % (AUTO) 4.1 % (0.0-8.0); HEMATOCRIT 35.6 % (42-54); LYMPHOCYTES % (AUTO) 23.5 % (21.0-51.0); MEAN CORPUSCULAR HEMOGLOBIN 28.4 pg (27.0-33.0); MEAN CORPUSCULAR HGB CONC 32.9 g/dL (32.0-36.0); MEAN CORPUSCULAR VOLUME 86.4 fL (79-99); NEUTROPHILS % (AUTO) 62.9 % (40.0-77.0); PLATELET COUNT (AUTO) 265 K/uL (130-400); RED BLOOD CELL COUNT(AUTO) 4.12 MIL/uL (4.50-6.20); RED CELL DISTRIBUTION WIDTH 13.4 % (11.0-15.5); WHITE BLOOD COUNT (AUTO) 9.8 K/uL (4.8-10.8)
[2022-02-09] MEDS: INSULIN HUMULIN R 100 UNIT/ML 3ML SQ SCH ×4 (06:00→17:20)
[2022-02-09 06:09] LABS: ALBUMIN 2.5 g/dL (3.5-5.0); BILIRUBIN,TOTAL 0.3 mg/dL (0.2-1.0); CREATININE 0.8 mg/dL (0.5-1.5); POTASSIUM 3.9 mmol/L (3.5-5.1); TOTAL PROTEIN, SERUM 6.4 g/dL (6.0-8.3)
[2022-02-09] MEDS: MORPHINE 4 MG SYG IV PRN ×2 (06:35→15:10)
[2022-02-09 08:34] VITALS: BP 133/61
[2022-02-09] MEDS: LISINOPRIL 20 MG TABLET PO SCH (09:44)
[2022-02-09] MEDS: FAMOTIDINE 20MG VIAL IV SCH ×2 (09:44→20:30)
[2022-02-09] MEDS: ASPIRIN 81 MG EC TAB PO SCH (09:44)
[2022-02-09] MEDS: RIVAROXABAN 2.5 MG TABLET PO SCH ×2 (09:44→20:30)
[2022-02-09] MEDS: NEOMY SULF/BACITRA/POLYMYXIN B 1 EACH PACKET TP SCH ×2 (09:44→20:30)
[2022-02-09 12:00] VITALS: BP 130/60
[2022-02-09] MEDS: CEFEPIME HCL 1 GM VIAL IVP SCH ×2 (15:00→22:32)
[2022-02-09 18:31] VITALS: BP 169/82
[2022-02-09 19:31] VITALS: BP 150/71
[2022-02-09] MEDS: ATORVASTATIN 40 MG TABLET PO SCH (20:30)
[2022-02-09] MEDS: ACETAMINOPHEN 325 MG TAB PO PRN (20:43)
[2022-02-09] MEDS ORDERED: ATORVASTATIN 40 MG TABLET PO SCH (21:00)
[2022-02-09 23:27] VITALS: BP 112/64
[2022-02-10] MEDS: LACTATED RINGERS 1000ML 1,000 ML IV SCH (00:51)
[2022-02-10] MEDS: INSULIN HUMULIN R 100 UNIT/ML 3ML SQ SCH ×5 (00:51→23:09)
[2022-02-10] MEDS: MORPHINE 4 MG SYG IV PRN ×3 (03:08→22:38)
[2022-02-10] MEDS: VANCOMYCIN 1.25 GM/250 ML BAG 250 ML IV SCH ×2 (03:09→16:35)
[2022-02-10 04:08] VITALS: BP 134/76
[2022-02-10 06:32] LABS: BASOPHILS % (AUTO) 1.7 % (0.0-5.0); EOSINOPHILS % (AUTO) 4.7 % (0.0-8.0); HEMATOCRIT 38.8 % (42-54); LYMPHOCYTES % (AUTO) 22.6 % (21.0-51.0); MEAN CORPUSCULAR HEMOGLOBIN 27.8 pg (27.0-33.0); MEAN CORPUSCULAR HGB CONC 32.2 g/dL (32.0-36.0); MEAN CORPUSCULAR VOLUME 86.2 fL (79-99); MONOCYTES % (AUTO) 8.1 % (3.0-13.0); NEUTROPHILS % (AUTO) 62.3 % (40.0-77.0); PLATELET COUNT (AUTO) 279 K/uL (130-400); RED CELL DISTRIBUTION WIDTH 12.9 % (11.0-15.5); WHITE BLOOD COUNT (AUTO) 8.9 K/uL (4.8-10.8)
[2022-02-10] MEDS: CEFEPIME HCL 1 GM VIAL IVP SCH ×3 (06:33→22:38)
[2022-02-10 06:37] LABS: CREATININE 0.6 mg/dL (0.5-1.5); POTASSIUM 3.8 mmol/L (3.5-5.1)
[2022-02-10] MEDS ORDERED: ACETAMINOPHEN WITH CODEINE 1 TAB TAB PO PRN ×2 (08:00)
[2022-02-10 08:39] VITALS: BP 123/54
[2022-02-10] MEDS: RIVAROXABAN 2.5 MG TABLET PO SCH ×2 (09:43→22:38)
[2022-02-10] MEDS: ASPIRIN 81 MG EC TAB PO SCH (09:43)
[2022-02-10] MEDS: LISINOPRIL 20 MG TABLET PO SCH (09:43)
[2022-02-10] MEDS: NEOMY SULF/BACITRA/POLYMYXIN B 1 EACH PACKET TP SCH ×2 (09:43→22:38)
[2022-02-10] MEDS: FAMOTIDINE 20MG VIAL IV SCH ×2 (09:44→22:38)
[2022-02-10 11:38] VITALS: BP 159/74
[2022-02-10 16:30] VITALS: BP 148/69
[2022-02-10 19:35] VITALS: BP 124/66
[2022-02-10] MEDS: ATORVASTATIN 40 MG TABLET PO SCH (22:38)
[2022-02-10 23:41] VITALS: BP 139/77
[2022-02-11 03:48] VITALS: BP 139/73
[2022-02-11] MEDS: VANCOMYCIN 1.25 GM/250 ML BAG 250 ML IV SCH ×2 (03:48→15:11)
[2022-02-11] MEDS: CEFEPIME HCL 1 GM VIAL IVP SCH ×3 (06:37→21:30)
[2022-02-11] MEDS: INSULIN HUMULIN R 100 UNIT/ML 3ML SQ SCH ×3 (06:38→17:13)
[2022-02-11] MEDS: ASPIRIN 81 MG EC TAB PO SCH (08:11)
[2022-02-11] MEDS: NEOMY SULF/BACITRA/POLYMYXIN B 1 EACH PACKET TP SCH ×2 (08:11→21:27)
[2022-02-11] MEDS: RIVAROXABAN 2.5 MG TABLET PO SCH ×2 (08:12→20:06)
[2022-02-11] MEDS: FAMOTIDINE 20MG VIAL IV SCH ×2 (08:12→20:06)
[2022-02-11] MEDS: LISINOPRIL 20 MG TABLET PO SCH (08:12)
[2022-02-11 08:18] VITALS: BP 158/78
[2022-02-11 12:00] VITALS: BP 149/78
[2022-02-11 16:00] VITALS: BP 137/71
[2022-02-11 19:36] VITALS: BP 155/73
[2022-02-11] MEDS: ATORVASTATIN 40 MG TABLET PO SCH (20:06)
[2022-02-11] MEDS ORDERED: HONEY 1 APPL/ML TUBE TP ONE (20:13)
[2022-02-12 00:47] VITALS: BP 140/70
[2022-02-12] MEDS: VANCOMYCIN 1.25 GM/250 ML BAG 250 ML IV SCH (03:30)
[2022-02-12 03:51] VITALS: BP 138/76
[2022-02-12] MEDS: CEFEPIME HCL 1 GM VIAL IVP SCH ×2 (06:12→14:29)
[2022-02-12] MEDS: INSULIN HUMULIN R 100 UNIT/ML 3ML SQ SCH ×2 (06:51→12:06)
[2022-02-12 07:57] VITALS: BP 132/70
[2022-02-12] MEDS: LISINOPRIL 20 MG TABLET PO SCH (10:02)
[2022-02-12] MEDS: RIVAROXABAN 2.5 MG TABLET PO SCH (10:02)
[2022-02-12] MEDS: NEOMY SULF/BACITRA/POLYMYXIN B 1 EACH PACKET TP SCH (10:02)
[2022-02-12] MEDS: ASPIRIN 81 MG EC TAB PO SCH (10:02)
[2022-02-12] MEDS: FAMOTIDINE 20MG VIAL IV SCH (10:08)
[2022-02-12 11:11] LABS: HEMATOCRIT 39.5 % (42-54); MEAN CORPUSCULAR HEMOGLOBIN 28.1 pg (27.0-33.0); MEAN CORPUSCULAR HGB CONC 33.7 g/dL (32.0-36.0); MEAN CORPUSCULAR VOLUME 83.5 fL (79-99); RED BLOOD CELL COUNT(AUTO) 4.73 MIL/uL (4.50-6.20); RED CELL DISTRIBUTION WIDTH 12.9 % (11.0-15.5); WHITE BLOOD COUNT (AUTO) 9.9 K/uL (4.8-10.8)
[2022-02-12 11:19] LABS: CREATININE 0.8 mg/dL (0.5-1.5); POTASSIUM 4.1 mmol/L (3.5-5.1)
[2022-02-12 11:58] VITALS: BP 137/76
[2022-02-12] MEDS ORDERED: HONEY 1 APPL/ML TUBE TP ONE (15:11)
[2022-02-12] MEDS ORDERED: HONEY 1 APPL/ML TUBE TP SCH (21:00)
[2022-02-13] MEDS ORDERED: Dapagliflozin Propanediol (Farxiga) 10 MG PO SCH (09:00)
[2022-02-13] MEDS ORDERED: LISINOPRIL 40 MG TABLET PO SCH (09:00)
[2022-02-13] MEDS ORDERED: LIRAGLUTIDE 0.6 MG SQ SCH (09:00)
== END 2022-02-12 15:10 | disposition home or self-care (01) | DRG 718 ==
LOC: EDH 12:07 → EDHIP 14:48 → 3BH 22:45
PROVIDERS: ADMIT Internal Medicine; ATTEND Internal Medicine
PROC: 0VB Male Reproductive System, Excision (ICD-10-PCS; 2022-02-08)
PROC: 0V950ZZ Drainage of Scrotum, Open Approach (ICD-10-PCS; principal; 2022-02-08 13:52)
PROC: 0HBRXZZ Excision of Toe Nail, External Approach (ICD-10-PCS; 2022-02-10)
PROC: 0HBRXZZ Excision of Toe Nail, External Approach (ICD-10-PCS; 2022-02-10)
PROC: 0HBRXZZ Excision of Toe Nail, External Approach (ICD-10-PCS; 2022-02-10)
PROC: 0HBRXZZ Excision of Toe Nail, External Approach (ICD-10-PCS; 2022-02-10)
PROC: 0HBRXZZ Excision of Toe Nail, External Approach (ICD-10-PCS; 2022-02-10)
PROC: 0HBRXZZ Excision of Toe Nail, External Approach (ICD-10-PCS; 2022-02-10)
PROC: 0HBRXZZ Excision of Toe Nail, External Approach (ICD-10-PCS; 2022-02-10)
PROC: 0HBRXZZ Excision of Toe Nail, External Approach (ICD-10-PCS; 2022-02-10)
PROC: 0HBRXZZ Excision of Toe Nail, External Approach (ICD-10-PCS; 2022-02-10)
PROC: 0HBRXZZ Excision of Toe Nail, External Approach (ICD-10-PCS; 2022-02-10)
DX: N49.2 Inflammatory disorders of scrotum (principal); A63.0 Anogenital (venereal) warts; E78.5 Hyperlipidemia, unspecified; I10 Essential (primary) hypertension; E11.51 Type 2 diabetes mellitus with diabetic peripheral angiopathy without gangrene; E78.00 Pure hypercholesterolemia, unspecified; Z20.822 Contact with and (suspected) exposure to COVID-19; L60.2 Onychogryphosis; F17.200 Nicotine dependence, unspecified, uncomplicated; Z79.01 Long term (current) use of anticoagulants; Z79.84 Long term (current) use of oral hypoglycemic drugs; Z82.0 Family history of epilepsy and other diseases of the nervous system; Z82.3 Family history of stroke; Z82.5 Family history of asthma and other chronic lower respiratory diseases; Z82.49 Family history of ischemic heart disease and other diseases of the circulatory system; Z83.3 Family history of diabetes mellitus
CPT/HCPCS: 36415; 71045; 74176; 76870; 80048; 80053; 80202; 81001; 82570; 82948; 83036; 84145; 84156; 84484; 85025; 85027; 85610; 85651; 85730; 86140; 87040; 87070; 87076; 87077; 87186; 87205; 87635; 93005; G0378; J0330; J0690; J0692; J1580; J1815; J1885; J2001; J2175; J2250; J2270; J2543; J2704; J3010; J3490; J7030; J7120

== ENCOUNTER 2022-02-21 09:23 | Emergency (ER) | payer OTHER ==
[~2022-02-21] VITALS: Ht 170.2 cm; Wt 81.6 kg
[~2022-02-21 09:23] MED LIST changes: -ACET-2079 PO; -AMOX-426 PO
[2022-02-21 10:06] LABS: BASOPHILS % (AUTO) 1.5 % (0.0-5.0); HEMATOCRIT 42.9 % (42-54); LYMPHOCYTES % (AUTO) 18.7 % (21.0-51.0); MEAN CORPUSCULAR HEMOGLOBIN 28.2 pg (27.0-33.0); MEAN CORPUSCULAR HGB CONC 32.6 g/dL (32.0-36.0); MEAN CORPUSCULAR VOLUME 86.5 fL (79-99); MONOCYTES % (AUTO) 5.5 % (3.0-13.0); NEUTROPHILS % (AUTO) 71.8 % (40.0-77.0); PLATELET COUNT (AUTO) 379 K/uL (130-400); RED BLOOD CELL COUNT(AUTO) 4.96 MIL/uL (4.50-6.20); RED CELL DISTRIBUTION WIDTH 14.1 % (11.0-15.5); WHITE BLOOD COUNT (AUTO) 13.3 K/uL (4.8-10.8)
[2022-02-21 10:13] LABS: APPEARANCE,URINE Clear (CLEAR); BILIRUBIN,URINE Negative (NEGATIVE); COLOR,URINE Yellow (YELLOW); GLUCOSE, URINE (UA) >=1000 mg/dL (NEGATIVE); KETONES,URINE Negative (NEGATIVE); LEUKOCYTE ESTERASE ,URINE Trace (NEGATIVE); NITRATE,URINE Negative (NEGATIVE); OCCULT BLOOD,URINE Negative (NEGATIVE); PH,URINE 5.5 (5.0-8.0); PROTEIN,URINE POS 1+ mg/dL (NEGATIVE)
[2022-02-21 10:15] LABS: CREATININE 0.9 mg/dL (0.5-1.5); POTASSIUM 4.1 mmol/L (3.5-5.1)
[2022-02-21 10:21] LABS: ALBUMIN 3.3 g/dL (3.5-5.0); BILIRUBIN,TOTAL 0.2 mg/dL (0.2-1.0); TOTAL PROTEIN, SERUM 7.9 g/dL (6.0-8.3)
[2022-02-21] MEDS ORDERED: ZOSYN 3.375GM +NS 50ML IV SCH (10:30)
[2022-02-21 10:44] LABS: BACTERIA,URINE Rare /HPF (None Seen); RBC,URINE 0-1 /HPF (0-1); YEAST,URINE BUDDING Moderate /HPF (None Seen)
[2022-02-21 10:45] LABS: SQUAMOUS EPITHELIAL CELL,UR Rare /HPF (0-2)
[2022-02-21 10:56] VITALS: BP 110/61
[2022-02-21] MEDS ORDERED: SULF1TAB42 PO (10:57)
[2022-02-21] MEDS ORDERED: CLIN-141 PO (10:57)
== END 2022-02-21 11:31 | disposition home or self-care (01) ==
LOC: EDH 09:23
DX: S31.30XA Unspecified open wound of scrotum and testes, initial encounter (principal); E11.9 Type 2 diabetes mellitus without complications; E78.00 Pure hypercholesterolemia, unspecified; I10 Essential (primary) hypertension; Z79.82 Long term (current) use of aspirin; Z79.84 Long term (current) use of oral hypoglycemic drugs; Z79.899 Other long term (current) drug therapy; F17.200 Nicotine dependence, unspecified, uncomplicated; X58.XXXA Exposure to other specified factors, initial encounter; Y93.89 Activity, other specified; Y92.89 Other specified places as the place of occurrence of the external cause; Y99.8 Other external cause status
CPT/HCPCS: 36415; 80053; 81001; 85025; 96365; 99284; J2543

== ENCOUNTER 2023-02-14 19:07 | Inpatient (IN) | payer OTHER ==
[~2023-02-14] VITALS: Ht 172.7 cm; Wt 86.1 kg
[~2023-02-14 19:07] MED LIST changes: +CLIN-141 PO; +SULF1TAB42 PO
[2023-02-14 22:09] LABS: BASOPHILS % (AUTO) 1.3 % (0.0-5.0); EOSINOPHILS % (AUTO) 2.3 % (0.0-8.0); HEMATOCRIT 41.9 % (42-54); LYMPHOCYTES % (AUTO) 26.4 % (21.0-51.0); MEAN CORPUSCULAR HEMOGLOBIN 29.5 pg (27.0-33.0); MEAN CORPUSCULAR HGB CONC 32.7 g/dL (32.0-36.0); MEAN CORPUSCULAR VOLUME 90.3 fL (79-99); MONOCYTES % (AUTO) 6.1 % (3.0-13.0); NEUTROPHILS % (AUTO) 63.6 % (40.0-77.0); PLATELET COUNT (AUTO) 283 K/uL (130-400); RED BLOOD CELL COUNT(AUTO) 4.64 MIL/uL (4.50-6.20); RED CELL DISTRIBUTION WIDTH 14.1 % (11.0-15.5); WHITE BLOOD COUNT (AUTO) 13.5 K/uL (4.8-10.8)
[2023-02-14 22:16] LABS: CREATININE 0.9 mg/dL (0.5-1.5)
[2023-02-14] MEDS ORDERED: IOHEXOL-350 50ML VIAL IV ONE (22:21)
[2023-02-14] MEDS ORDERED: IOHEXOL 350 MG/ML 100ML INFUS..BTL IV ONE (22:21)
[2023-02-14 22:27] LABS: ALBUMIN 3.9 g/dL (3.5-5.0)
[2023-02-14 22:28] LABS: INR 0.94 (0.85-1.15); PROTHROMBIN TIME 10.3 SEC (9.6-11.6)
[2023-02-14 22:30] LABS: PARTIAL THROMBOPLASTIN TIME 28.7 SEC (26.3-35.5)
[2023-02-14 22:34] LABS: B-TYPE NATRIURETIC PEPTIDE 21 pg/mL (0-100)
[2023-02-15] MEDS ORDERED: NITROGLYCERIN 0.4 MG SL TAB SL PRN (00:30)
[2023-02-15] MEDS ORDERED: ONDANSETRON 4MG INJ IV PRN (00:30)
[2023-02-15] MEDS ORDERED: GLUCAGON 1MG KIT 1 MG ML IM PRN (00:30)
[2023-02-15] MEDS ORDERED: DEXTROSE 50%-WATER 50 ML DISP.SYRIN IV PRN (00:30)
[2023-02-15] MEDS ORDERED: ACETAMINOPHEN 325 MG TAB PO PRN ×2 (00:30)
[2023-02-15 02:23] LABS: INR 0.94 (0.85-1.15); PROTHROMBIN TIME 10.3 SEC (9.6-11.6)
[2023-02-15 02:24] LABS: PARTIAL THROMBOPLASTIN TIME 28.2 SEC (26.3-35.5)
[2023-02-15] MEDS ORDERED: HEPARIN 5,000 UNIT VIAL ONE (03:23)
[2023-02-15] MEDS: HEPARIN 25,000 UNITS/250ML D5W 250 ML IV SCH ×2 (03:34→23:43)
[2023-02-15 04:03] LABS: APPEARANCE,URINE CLEAR (CLEAR); BILIRUBIN,URINE NEGATIVE (NEGATIVE); COLOR,URINE LIGHT-YELLOW (YELLOW); GLUCOSE, URINE (UA) >=1000 mg/dL (NEGATIVE); KETONES,URINE NEGATIVE (NEGATIVE); LEUKOCYTE ESTERASE ,URINE NEGATIVE Leu/uL (NEGATIVE); NITRATE,URINE NEGATIVE (NEGATIVE); OCCULT BLOOD,URINE NEGATIVE (NEGATIVE); PH,URINE 5.5 (5.0-8.0); PROTEIN,URINE 30 mg/dL (NEGATIVE); UROBILINOGEN,URINE 0.2 mg/dL (0.2-1.0)
[2023-02-15 04:06] LABS: BACTERIA,URINE RARE /HPF (None Seen)
[2023-02-15 04:46] VITALS: BP 128/60
[2023-02-15] MEDS: INSULIN HUMULIN R 100 UNIT/ML 3ML SQ SCH ×4 (05:48→21:00)
[2023-02-15 07:55] LABS: BASOPHILS % (AUTO) 1.4 % (0.0-5.0); EOSINOPHILS % (AUTO) 2.3 % (0.0-8.0); HEMATOCRIT 40.3 % (42-54); MEAN CORPUSCULAR HEMOGLOBIN 29.9 pg (27.0-33.0); MEAN CORPUSCULAR HGB CONC 32.8 g/dL (32.0-36.0); MEAN CORPUSCULAR VOLUME 91.2 fL (79-99); MONOCYTES % (AUTO) 5.7 % (3.0-13.0); NEUTROPHILS % (AUTO) 62.1 % (40.0-77.0); PLATELET COUNT (AUTO) 273 K/uL (130-400); RED BLOOD CELL COUNT(AUTO) 4.42 MIL/uL (4.50-6.20); RED CELL DISTRIBUTION WIDTH 14.4 % (11.0-15.5); WHITE BLOOD COUNT (AUTO) 11.1 K/uL (4.8-10.8)
[2023-02-15 08:00] VITALS: BP 111/61
[2023-02-15 08:03] LABS: HEMOGLOBIN A1C 7.5 % (4.0-6.0)
[2023-02-15 08:04] LABS: PROTHROMBIN TIME 10.9 SEC (9.6-11.6)
[2023-02-15 08:06] LABS: ALBUMIN 3.4 g/dL (3.5-5.0); CREATININE 0.9 mg/dL (0.5-1.5); MAGNESIUM 1.9 mg/dL (1.80-2.40); PARTIAL THROMBOPLASTIN TIME 83.2 SEC (26.3-35.5); TOTAL PROTEIN, SERUM 7.4 g/dL (6.0-8.3)
[2023-02-15] MEDS: FAMOTIDINE 20MG TAB PO SCH ×2 (09:50→20:01)
[2023-02-15] MEDS ORDERED: METF-446 PO (11:07)
[2023-02-15] MEDS ORDERED: BUPR75TA8 PO (11:07)
[2023-02-15] MEDS ORDERED: GABA-529 PO (11:07)
[2023-02-15] MEDS ORDERED: AMLO-343 PO (11:07)
[2023-02-15] MEDS ORDERED: VITAD50000 PO (11:07)
[2023-02-15 12:00] VITALS: BP 127/68
[2023-02-15 16:00] VITALS: BP 127/63
[2023-02-15 20:00] VITALS: BP 133/67
[2023-02-16] VITALS (7 sets, daily range): BP systolic 116–136; BP diastolic 60–66
[2023-02-16] MEDS: INSULIN HUMULIN R 100 UNIT/ML 3ML SQ SCH ×4 (05:45→20:05)
[2023-02-16] MEDS ORDERED: POTASSIUM CHLORIDE 20MEQ/100ML 100 ML IV PRN (07:30)
[2023-02-16] MEDS ORDERED: MAGNESIUM 2GM PREMIX 50ML 50 ML IV PRN (07:30)
[2023-02-16] MEDS ORDERED: POTASSIUM CHLORIDE 10% ELIXIR 20 MEQ/15 ML UDCUP PO PRN (07:30)
[2023-02-16] MEDS ORDERED: KCL 20 MEQ ERTAB PO PRN (07:30)
[2023-02-16 07:34] LABS: BASOPHILS % (AUTO) 1.5 % (0.0-5.0); HEMATOCRIT 41.3 % (42-54); LYMPHOCYTES % (AUTO) 28.3 % (21.0-51.0); MEAN CORPUSCULAR HEMOGLOBIN 29.2 pg (27.0-33.0); MEAN CORPUSCULAR VOLUME 91.4 fL (79-99); NEUTROPHILS % (AUTO) 60.8 % (40.0-77.0); PLATELET COUNT (AUTO) 261 K/uL (130-400); RED BLOOD CELL COUNT(AUTO) 4.52 MIL/uL (4.50-6.20); RED CELL DISTRIBUTION WIDTH 13.9 % (11.0-15.5); WHITE BLOOD COUNT (AUTO) 10.1 K/uL (4.8-10.8)
[2023-02-16 07:39] LABS: CREATININE 0.8 mg/dL (0.5-1.5); MAGNESIUM 1.8 mg/dL (1.80-2.40); POTASSIUM 4.1 mmol/L (3.5-5.1)
[2023-02-16] MEDS: FAMOTIDINE 20MG TAB PO SCH ×2 (09:10→20:05)
[2023-02-16] MEDS ORDERED: GABAPENTIN 100 MG CAPSULE PO PRN (11:30)
[2023-02-16] MEDS ORDERED: ASPIRIN 81 MG EC TAB PO ONE (12:00)
[2023-02-16 13:51] LABS: INR 1.03 (0.85-1.15); PROTHROMBIN TIME 11.2 SEC (9.6-11.6)
[2023-02-16 13:53] LABS: PARTIAL THROMBOPLASTIN TIME 67.8 SEC (26.3-35.5)
[2023-02-16] MEDS: BUPROPION HCL 150 MG TABLET.SA PO SCH (20:05)
[2023-02-16] MEDS: HEPARIN 25,000 UNITS/250ML D5W 250 ML IV SCH (22:32)
[2023-02-17 03:54] VITALS: BP 125/60
[2023-02-17] MEDS: INSULIN HUMULIN R 100 UNIT/ML 3ML SQ SCH ×5 (05:19→20:54)
[2023-02-17 07:54] VITALS: BP 139/61
[2023-02-17] MEDS ORDERED: ASPIRIN 81 MG EC TAB PO SCH (09:00)
[2023-02-17 09:14] LABS: HEMATOCRIT 41.3 % (42-54); MEAN CORPUSCULAR HEMOGLOBIN 29.4 pg (27.0-33.0); MEAN CORPUSCULAR HGB CONC 32.9 g/dL (32.0-36.0); MEAN CORPUSCULAR VOLUME 89.4 fL (79-99); RED BLOOD CELL COUNT(AUTO) 4.62 MIL/uL (4.50-6.20); RED CELL DISTRIBUTION WIDTH 13.5 % (11.0-15.5); WHITE BLOOD COUNT (AUTO) 9.6 K/uL (4.8-10.8)
[2023-02-17 09:24] LABS: CREATININE 0.9 mg/dL (0.5-1.5)
[2023-02-17] MEDS ORDERED: CILOSTAZOL 100 MG TAB PO SCH (09:30)
[2023-02-17] MEDS: BUPROPION HCL 150 MG TABLET.SA PO SCH ×2 (09:30→20:49)
[2023-02-17] MEDS: RIVAROXABAN 2.5 MG TABLET PO SCH ×2 (09:30→20:49)
[2023-02-17] MEDS: CILOSTAZOL 100 MG TAB PO SCH ×2 (09:31→20:49)
[2023-02-17] MEDS: FAMOTIDINE 20MG TAB PO SCH ×2 (09:31→20:49)
[2023-02-17] MEDS: ATORVASTATIN 40 MG TABLET PO SCH (09:31)
[2023-02-17 11:14] VITALS: BP 112/56
[2023-02-17 16:22] VITALS: BP 120/67
[2023-02-17 20:09] VITALS: BP 147/67
[2023-02-17] MEDS ORDERED: INSULIN GLARGINE 100 UNITS/ML 10 ML VIAL SQ SCH (21:00)
[2023-02-18 00:02] VITALS: BP 131/60
[2023-02-18 04:32] VITALS: BP 115/55
[2023-02-18 05:00] LABS: BASOPHILS % (AUTO) 1.6 % (0.0-5.0); EOSINOPHILS % (AUTO) 2.7 % (0.0-8.0); HEMATOCRIT 37.2 % (42-54); LYMPHOCYTES % (AUTO) 26.9 % (21.0-51.0); MEAN CORPUSCULAR HEMOGLOBIN 29.8 pg (27.0-33.0); MEAN CORPUSCULAR HGB CONC 33.1 g/dL (32.0-36.0); MEAN CORPUSCULAR VOLUME 90.1 fL (79-99); NEUTROPHILS % (AUTO) 60.3 % (40.0-77.0); PLATELET COUNT (AUTO) 239 K/uL (130-400); RED BLOOD CELL COUNT(AUTO) 4.13 MIL/uL (4.50-6.20); RED CELL DISTRIBUTION WIDTH 13.4 % (11.0-15.5); WHITE BLOOD COUNT (AUTO) 10.2 K/uL (4.8-10.8)
[2023-02-18 05:19] LABS: POTASSIUM 3.7 mmol/L (3.5-5.1)
[2023-02-18] MEDS: INSULIN HUMULIN R 100 UNIT/ML 3ML SQ SCH ×4 (05:38→13:36)
[2023-02-18 07:45] VITALS: BP 111/61
[2023-02-18] MEDS: BUPROPION HCL 150 MG TABLET.SA PO SCH (09:26)
[2023-02-18] MEDS: FAMOTIDINE 20MG TAB PO SCH (09:26)
[2023-02-18] MEDS: CILOSTAZOL 100 MG TAB PO SCH (09:26)
[2023-02-18] MEDS: RIVAROXABAN 2.5 MG TABLET PO SCH (09:26)
[2023-02-18] MEDS: ATORVASTATIN 40 MG TABLET PO SCH (09:26)
[2023-02-18 11:22] VITALS: BP 130/65
[2023-02-18] MEDS ORDERED: RIVA2.5T PO (13:05)
[2023-02-18] MEDS ORDERED: CILO100T3 PO (13:05)
== END 2023-02-18 14:36 | disposition home or self-care (01) | DRG 316 ==
LOC: EDH 19:07 → EDHIP 19:08 → 4CH 02-15 04:34
PROVIDERS: ADMIT Internal Medicine; ATTEND Internal Medicine
DX: T82.898A Other specified complication of vascular prosthetic devices, implants and grafts, initial encounter (principal); E11.51 Type 2 diabetes mellitus with diabetic peripheral angiopathy without gangrene; I10 Essential (primary) hypertension; Z20.822 Contact with and (suspected) exposure to COVID-19; Y83.2 Surgical operation with anastomosis, bypass or graft as the cause of abnormal reaction of the patient, or of later complication, without mention of misadventure at the time of the procedure; E11.42 Type 2 diabetes mellitus with diabetic polyneuropathy; E78.00 Pure hypercholesterolemia, unspecified; F17.210 Nicotine dependence, cigarettes, uncomplicated; Z79.01 Long term (current) use of anticoagulants; Z79.02 Long term (current) use of antithrombotics/antiplatelets; Z82.49 Family history of ischemic heart disease and other diseases of the circulatory system; Z95.5 Presence of coronary angioplasty implant and graft
CPT/HCPCS: 36415; 71045; 75635; 80048; 80053; 80061; 81001; 82550; 82948; 83036; 83605; 83735; 83874; 83880; 84145; 84484; 85025; 85027; 85260; 85610; 85730; 87040; 87635; 93005; 93925; G0378; J1644; J1815; Q9967

== ENCOUNTER 2023-02-21 11:25 | Emergency (ER) | payer OTHER, SELFPAY ==
[~2023-02-21] VITALS: Ht 172.7 cm; Wt 84.4 kg
[~2023-02-21 11:25] MED LIST changes: -AEC81 PO; +AMLO-343 PO; +BUPR75TA8 PO; +CILO100T3 PO; -CLIN-141 PO; -FAMO20TA8 PO; +GABA-529 PO; -HYDR25TA PO; -METF-445 PO; +METF-446 PO; -SITA100T12 PO; -SULF1TAB42 PO; +VITAD50000 PO
[2023-02-21 11:52] VITALS: BP 122/61
== END 2023-02-21 14:34 | disposition home or self-care (01) ==
LOC: EDH 11:25
DX: M79.671 Pain in right foot (principal); M79.89 Other specified soft tissue disorders; I10 Essential (primary) hypertension; E11.9 Type 2 diabetes mellitus without complications; E78.00 Pure hypercholesterolemia, unspecified; F17.200 Nicotine dependence, unspecified, uncomplicated; Z79.82 Long term (current) use of aspirin; Z79.84 Long term (current) use of oral hypoglycemic drugs; Z79.899 Other long term (current) drug therapy; Z98.890 Other specified postprocedural states
CPT/HCPCS: 99281

== ENCOUNTER 2023-05-11 08:30 | Inpatient (IN) | payer OTHER, SELFPAY ==
[~2023-05-11] VITALS: Ht 170.2 cm; Wt 81.2 kg
[2023-05-11] MEDS ORDERED: VANCOMYCIN KIT 1 GM/250 ML IV.KIT IV ONE (09:30)
[2023-05-11] MEDS ORDERED: ZOSYN 3.375GM +NS 50ML IVPB ONE (09:30)
[2023-05-11] MEDS ORDERED: 0.9%NACL 1000ML 1,000 ML IV ONE (09:30)
[2023-05-11 09:38] LABS: BASOPHILS # (AUTO) 0.16 K/uL (0.00-0.20); BASOPHILS % (AUTO) 1.5 % (0.0-5.0); EOSINOPHILS # (AUTO) 0.16 K/uL (0.00-0.70); EOSINOPHILS % (AUTO) 1.5 % (0.0-8.0); HEMATOCRIT 41.8 % (42-54); IMMATURE GRANULOCYTE ABSOLUTE 0.04 K/uL (0-1); LYMPHOCYTES # (AUTO) 1.9 K/uL (1.0-4.8); LYMPHOCYTES % (AUTO) 17.5 % (21.0-51.0); MEAN CORPUSCULAR HEMOGLOBIN 29.4 pg (27.0-33.0); MEAN CORPUSCULAR VOLUME 88.9 fL (79-99); MONOCYTES # (AUTO) 0.5 K/uL (0.1-1.0); MONOCYTES % (AUTO) 4.7 % (3.0-13.0); NEUTROPHILS # (AUTO) 8.2 K/uL (1.8-7.7); NEUTROPHILS % (AUTO) 74.4 % (40.0-77.0); PLATELET COUNT (AUTO) 285 K/uL (130-400); RED CELL DISTRIBUTION WIDTH 13.1 % (11.0-15.5)
[2023-05-11 09:46] LABS: CREATININE 0.9 mg/dL (0.5-1.5); INR 0.96 (0.85-1.15); POTASSIUM 3.9 mmol/L (3.5-5.1); PROTHROMBIN TIME 11.2 SEC (9.6-11.6)
[2023-05-11 09:50] LABS: ALBUMIN 3.7 g/dL (3.5-5.0); BILIRUBIN,TOTAL 0.3 mg/dL (0.2-1.0); TOTAL PROTEIN, SERUM 8.1 g/dL (6.0-8.3)
[2023-05-11] MEDS ORDERED: IOHEXOL 350 MG/ML 100ML INFUS..BTL IV ONE ×2 (11:44→12:04)
[2023-05-11] MEDS ORDERED: IOHEXOL-350 50ML VIAL IV ONE (12:04)
[2023-05-11] MEDS ORDERED: AMLO-258 PO (13:41)
[2023-05-11] MEDS ORDERED: DAPA10TA PO (13:41)
[2023-05-11] MEDS ORDERED: LIRA0.6P SQ (13:45)
[2023-05-11] MEDS ORDERED: INSU100I24 SQ (13:45)
[2023-05-11 13:49] LABS: HEMOGLOBIN A1C 8.4 % (4.0-6.0)
[2023-05-11] MEDS ORDERED: VANCOMYCIN PROTOCOL PER PHARMACY IV SCH (14:00)
[2023-05-11 14:52] LABS: APPEARANCE,URINE CLEAR (CLEAR); BILIRUBIN,URINE NEGATIVE (NEGATIVE); COLOR,URINE COLORLESS (YELLOW); GLUCOSE, URINE (UA) >=1000 mg/dL (NEGATIVE); KETONES,URINE NEGATIVE (NEGATIVE); LEUKOCYTE ESTERASE ,URINE NEGATIVE Leu/uL (NEGATIVE); NITRATE,URINE NEGATIVE (NEGATIVE); OCCULT BLOOD,URINE NEGATIVE (NEGATIVE); PROTEIN,URINE 10 mg/dL (NEGATIVE); UROBILINOGEN,URINE 0.2 mg/dL (0.2-1.0)
[2023-05-11 14:54] LABS: ADD UA MICROSCOPIC YES
[2023-05-11 14:56] LABS: YEAST,URINE BUDDING MOD /HPF (None Seen)
[2023-05-11] MEDS: CEFEPIME HCL 1 GM VIAL IVPB SCH ×2 (15:26→23:39)
[2023-05-11 15:50] LABS: INR 1.01 (0.85-1.15); PROTHROMBIN TIME 11.7 SEC (9.6-11.6)
[2023-05-11 15:51] LABS: PARTIAL THROMBOPLASTIN TIME 34.2 SEC (26.3-35.5)
[2023-05-11 16:15] VITALS: BP 133/60; PULSE 78; RESP 18
[2023-05-11 16:21] VITALS: O2SAT 99
[2023-05-11] MEDS ORDERED: HEPARIN 25,000 UNITS/250ML D5W 250 ML IV SCH (16:30)
[2023-05-11] MEDS ORDERED: HEPARIN 5,000 UNIT VIAL SQ PRN (16:30)
[2023-05-11] MEDS: INSULIN HUMULIN R 100 UNIT/ML 3ML SQ SCH ×2 (16:30→21:00)
[2023-05-11] MEDS: VANCOMYCIN 1G/250ML KIT 250 ML IV SCH (18:24)
[2023-05-11] MEDS: ACETAMINOPHEN WITH CODEINE 1 TAB TAB PO PRN (18:24)
[2023-05-11 20:00] VITALS: BP 123/56; PULSE 78; RESP 20; O2SAT 96
[2023-05-11] MEDS: RIVAROXABAN 2.5 MG TABLET PO SCH (21:55)
[2023-05-11] MEDS: ATORVASTATIN 40 MG TABLET PO SCH (21:56)
[2023-05-11] MEDS: CILOSTAZOL 100 MG TAB PO SCH (21:56)
[2023-05-12] VITALS (9 sets, daily range): BP systolic 119–142; BP diastolic 60–73; PULSE 74–94; RESP 16–20; O2SAT 97–98
[2023-05-12] MEDS: ACETAMINOPHEN WITH CODEINE 1 TAB TAB PO PRN ×4 (01:24→20:55)
[2023-05-12] MEDS: VANCOMYCIN 1G/250ML KIT 250 ML IV SCH ×2 (05:40→17:28)
[2023-05-12 07:18] LABS: BASOPHILS # (AUTO) 0.13 K/uL (0.00-0.20); BASOPHILS % (AUTO) 1.3 % (0.0-5.0); EOSINOPHILS # (AUTO) 0.25 K/uL (0.00-0.70); EOSINOPHILS % (AUTO) 2.5 % (0.0-8.0); HEMATOCRIT 37.4 % (42-54); IMMATURE GRANULOCYTE ABSOLUTE 0.02 K/uL (0-1); LYMPHOCYTES # (AUTO) 1.4 K/uL (1.0-4.8); LYMPHOCYTES % (AUTO) 14.4 % (21.0-51.0); MEAN CORPUSCULAR HEMOGLOBIN 28.9 pg (27.0-33.0); MEAN CORPUSCULAR HGB CONC 32.4 g/dL (32.0-36.0); MEAN CORPUSCULAR VOLUME 89.5 fL (79-99); MONOCYTES # (AUTO) 0.6 K/uL (0.1-1.0); NEUTROPHILS # (AUTO) 7.6 K/uL (1.8-7.7); NEUTROPHILS % (AUTO) 75.6 % (40.0-77.0); PLATELET COUNT (AUTO) 251 K/uL (130-400); RED BLOOD CELL COUNT(AUTO) 4.18 MIL/uL (4.50-6.20)
[2023-05-12] MEDS: INSULIN HUMULIN R 100 UNIT/ML 3ML SQ SCH ×4 (07:30→20:56)
[2023-05-12 07:36] LABS: CREATININE 0.7 mg/dL (0.5-1.5); POTASSIUM 3.7 mmol/L (3.5-5.1)
[2023-05-12] MEDS: CEFEPIME HCL 1 GM VIAL IVPB SCH ×3 (08:18→23:19)
[2023-05-12] MEDS: CILOSTAZOL 100 MG TAB PO SCH ×2 (08:19→20:53)
[2023-05-12] MEDS: RIVAROXABAN 2.5 MG TABLET PO SCH ×2 (08:19→20:53)
[2023-05-12] MEDS ORDERED: POTASSIUM CHLORIDE 20MEQ/100ML 100 ML IV PRN (13:30)
[2023-05-12] MEDS ORDERED: MAGNESIUM 2GM PREMIX 50ML 50 ML IV PRN (13:30)
[2023-05-12] MEDS ORDERED: POTASSIUM CHLORIDE 10% ELIXIR 20 MEQ/15 ML UDCUP PO PRN (13:30)
[2023-05-12] MEDS ORDERED: KCL 20 MEQ ERTAB PO PRN (13:30)
[2023-05-12] MEDS: FAMOTIDINE 20MG TAB PO SCH (20:53)
[2023-05-12] MEDS: ATORVASTATIN 40 MG TABLET PO SCH (20:54)
[2023-05-13] VITALS (8 sets, daily range): BP systolic 120–143; BP diastolic 66–71; PULSE 74–98; RESP 16–18; O2SAT 96–97
[2023-05-13 05:13] LABS: BASOPHILS # (AUTO) 0.13 K/uL (0.00-0.20); BASOPHILS % (AUTO) 1.4 % (0.0-5.0); EOSINOPHILS # (AUTO) 0.35 K/uL (0.00-0.70); EOSINOPHILS % (AUTO) 3.9 % (0.0-8.0); HEMATOCRIT 36.7 % (42-54); IMMATURE GRANULOCYTE ABSOLUTE 0.04 K/uL (0-1); LYMPHOCYTES # (AUTO) 1.9 K/uL (1.0-4.8); MEAN CORPUSCULAR HGB CONC 32.7 g/dL (32.0-36.0); MEAN CORPUSCULAR VOLUME 88.6 fL (79-99); MONOCYTES # (AUTO) 0.8 K/uL (0.1-1.0); MONOCYTES % (AUTO) 8.7 % (3.0-13.0); NEUTROPHILS # (AUTO) 5.9 K/uL (1.8-7.7); NEUTROPHILS % (AUTO) 64.6 % (40.0-77.0); PLATELET COUNT (AUTO) 263 K/uL (130-400); RED BLOOD CELL COUNT(AUTO) 4.14 MIL/uL (4.50-6.20); RED CELL DISTRIBUTION WIDTH 12.9 % (11.0-15.5); WHITE BLOOD COUNT (AUTO) 9.1 K/uL (4.8-10.8)
[2023-05-13 05:50] LABS: ALBUMIN 3.1 g/dL (3.5-5.0); BILIRUBIN,TOTAL 0.3 mg/dL (0.2-1.0); CREATININE 0.8 mg/dL (0.5-1.5); CRP QUANTITATIVE 7.7 mg/L (0.00-9.0); MAGNESIUM 1.7 mg/dL (1.80-2.40); POTASSIUM 3.9 mmol/L (3.5-5.1); TOTAL PROTEIN, SERUM 7.1 g/dL (6.0-8.3); VANCOMYCIN TROUGH 13.4 UG/ML (10.0-20.0)
[2023-05-13 06:23] LABS: ERYTHROCYTE SEDIMENTATION RATE 50 MM/HR (0-20)
[2023-05-13] MEDS: CEFEPIME HCL 1 GM VIAL IVPB SCH ×3 (06:35→23:37)
[2023-05-13] MEDS: INSULIN HUMULIN R 100 UNIT/ML 3ML SQ SCH ×4 (06:35→20:21)
[2023-05-13] MEDS: RIVAROXABAN 2.5 MG TABLET PO SCH ×2 (08:44→20:25)
[2023-05-13] MEDS: AMLODIPINE 5 MG TAB PO SCH (08:46)
[2023-05-13] MEDS: FAMOTIDINE 20MG TAB PO SCH ×2 (08:46→20:24)
[2023-05-13] MEDS: CILOSTAZOL 100 MG TAB PO SCH ×2 (08:47→20:24)
[2023-05-13] MEDS ORDERED: NON-FORMULARY MEDICATION 1 EACH (Amlodipine Besylate 10 MG) PO SCH (09:00)
[2023-05-13] MEDS ORDERED: NON-FORMULARY MEDICATION 1 EACH (Rosuvastatin Calcium 40 MG) PO SCH (09:00)
[2023-05-13] MEDS: ATORVASTATIN 40 MG TABLET PO SCH (20:25)
[2023-05-14 03:49] VITALS: BP 113/64; PULSE 88; RESP 18
[2023-05-14] MEDS: CEFEPIME HCL 1 GM VIAL IVPB SCH (05:47)
[2023-05-14] MEDS: INSULIN HUMULIN R 100 UNIT/ML 3ML SQ SCH (05:49)
[2023-05-14 08:00] VITALS: BP 123/64; PULSE 82; RESP 16; O2SAT 96
[2023-05-14] MEDS: RIVAROXABAN 2.5 MG TABLET PO SCH (08:15)
[2023-05-14] MEDS: FAMOTIDINE 20MG TAB PO SCH (08:15)
[2023-05-14] MEDS: CILOSTAZOL 100 MG TAB PO SCH (08:16)
[2023-05-14] MEDS: AMLODIPINE 5 MG TAB PO SCH (08:16)
[2023-05-14 12:00] VITALS: BP 141/70; PULSE 88; RESP 16
[2023-05-14] MEDS ORDERED: DOXY-469 PO (12:51)
[2023-05-14] MEDS ORDERED: CEPH500B PO (12:51)
== END 2023-05-14 13:45 | disposition home or self-care (01) | DRG 603 ==
LOC: EDH 08:30 → EDHIP 08:31 → 3BH 16:15
PROVIDERS: ADMIT Internal Medicine; ATTEND Internal Medicine
DX: L03.115 Cellulitis of right lower limb (principal); L97.528 Non-pressure chronic ulcer of other part of left foot with other specified severity; L97.518 Non-pressure chronic ulcer of other part of right foot with other specified severity; E11.621 Type 2 diabetes mellitus with foot ulcer; I10 Essential (primary) hypertension; E11.42 Type 2 diabetes mellitus with diabetic polyneuropathy; E11.51 Type 2 diabetes mellitus with diabetic peripheral angiopathy without gangrene; E66.9 Obesity, unspecified; E78.00 Pure hypercholesterolemia, unspecified; I70.203 Unspecified atherosclerosis of native arteries of extremities, bilateral legs; I70.8 Atherosclerosis of other arteries; R26.2 Difficulty in walking, not elsewhere classified; F17.210 Nicotine dependence, cigarettes, uncomplicated; Z79.4 Long term (current) use of insulin; Z68.28 Body mass index [BMI] 28.0-28.9, adult
CPT/HCPCS: 36415; 73630; 73718; 75635; 80048; 80053; 80202; 81001; 82550; 82948; 83036; 83605; 83615; 83735; 84484; 85025; 85610; 85651; 85730; 86140; 87040; 87088; 93925; G0378; J0692; J1644; J1815; J2543; J3370; J3475; J7030; Q9967